=== PATIENT | male | born 1950 | race Caucasian/White ===

== ENCOUNTER 2021-06-04 17:15 | Outpatient (REF) | payer MEDICARE, SELFPAY ==
--- OUTSIDE RECORDS SUMMARY | 2021-06-04 17:19 | XMS_ITS ---
:1950 Author Care Team Providers Name Role Phone BECKI BUTLER MD Primary Care Provider [phone] Allergies None recorded. Medications None recorded. Problems Name Status Onset Date Source ? Hereditary Peripheral Neuropathy Active ? History Idiopathic Peripheral Neuropathy Active ? History Pain in Limb Active ? History Abnormal Gait Active ? History Abnormal Glucose Level Active ? History Procedures None recorded. Results Lab Results Date Name Specimen Result Interpretation Description Value Range Status Address ? 08/04/2016 Venipuncture BLD ? Venpn* ? ? Final [facility] L [facility] (Internal) : [address] 08/04/2016 Lipid Panel, S ? Chol 142 50-2 Final [facility] Serum mg/dL 00 Hospital L ab mg/d (Internal) : L [address] ? ? S ? Trig 121 10-1 Final [facility] try mg/dL 50 Hospital L ab mg/d (Internal) : L [address] ? ? S Low Hdl 33 40-6 Final [facility] try mg/dL 0 Hospital L ab mg/d (Internal) : L [address] ? ? S ? Ldl 85 0-13 Final [facility] try mg/dL 0 Hospital L ab mg/d (Internal) : L [address] Past Encounters 12/03/2020 Neck Pain; Cervical Radiculopathy; Antal gic Posture Amanda Lopez, PT: [address] [place] [address], [address], [place] [address], Ph. 11/01/2020 Neck Pain; Cervical Radiculopathy; Antal gic Posture Amanda Lopez, PT: [address] [place] [address], [address], [place] [address], Ph. 10/23/2020 Neck Pain; Cervical Radiculopathy; Antal gic Posture Amanda Lopez, PT: [address] [place] [address], [address], [place] [address], Ph. 10/18/2020 Neck Pain; Cervical Radiculopathy; Antal gic Posture Amanda Lopez, PT: [address] [facility] [address], [address], [place] [address], Ph. 10/01/2020 Neck Pain; Cervical Radiculopathy; Antal gic Posture Amanda Lopez, PT: [address] [facility] [address], [address], [place] [address], Ph. Social History None recorded. Vaccine List Vaccine Type COVID-19, mRNA, LNP-S, PF, 100 mcg/0.5 m L dose (Moderna) 04/17/2020?0.5 mL 05/14/2020?100 mcg Plan of Care Reminders Provider Appointments None ? ? recorded. Lab None ? ? recorded. Referral None ? ? recorded. Procedures None ? ? recorded. Surgeries None ? ? recorded. Imaging None ? ? recorded. Vitals None recorded.
[2021-06-04 18:41] LABS: Abs Immature Grans 0.02 10^3/uL (0.0-0.06); Absolute Basophil Count 0.03 10^3/uL (0.0-0.2); Absolute Eosinophil Count 0.15 10^3/uL (0.0-0.7); Absolute Lymphocyte Count 2.85 10^3/uL (1.2-3.4); Absolute Monocyte Count 0.55 10^3/uL (0.1-0.8); Absolute Neutrophil Count 3.39 10^3/uL (1.2-6.7); Basophils % 0.4; Eosinophils % 2.1; HCT 45.4 % (40.0-50.0); HGB 15.3 g/dL (13.5-17.5); Immature Grans % 0.3; Lymphocytes % 40.8; MCH 31.3 pg (27.0-33.0); MCHC 33.7 % (32.0-36.0); MCV 92.8 fL (80-95); MPV 10.1 fL (8.0-11.0); Monocytes % 7.9; Neutrophils % 48.5; Nucleated RBC 0 %; Platelet Count 240 10^3/uL (130-400); RBC 4.89 10^6/uL (4.36-5.78); RDW 12.1 % (11.8-14.1); RDW-SD 41.6 fL; WBC 6.99 10^3/uL (4.4-10.8)
[2021-06-04 19:05] LABS: ALT 35 U/L (16-63); AST 19 U/L (15-37); Alkaline Phosphatase 92 U/L (46-116); Anion Gap 7.6 mmol/L (3-11); BUN 19 mg/dL (7-18); Bilirubin, Total 0.4 mg/dL (0.2-1.0); CO2 28.4 mmol/L (21.0-32.0); CREATININE 1.1 mg/dL (0.70-1.30); Calcium 8.9 mg/dL (8.5-10.1); Calculated LDL 168 mg/dL (<100); Chloride 104 mmol/L (98-107); Cholesterol 247 mg/dL (<200); Glucose 98 mg/dL (74-106); HDL Cholesterol 39 mg/dL (40-60); Potassium 4.7 mmol/L (3.5-5.1); Sodium 140 mmol/L (136-145); Total Protein 7.3 g/dL (6.4-8.2); Triglyceride 202 mg/dL (<150)
[2021-06-12 15:26] LABS: Testosterone, Free 0.37 ng/dL (3.28-12.2); Testosterone, Total 17 ng/dL (240-950)
== END 2021-06-04 17:16 | disposition home or self-care (01) ==
LOC: NCHCN 17:15
PROVIDERS: Visit Provider Nurse Practitioner Family
DX: I10 Essential (primary) hypertension (principal)
CPT/HCPCS: 80053; 80061; 84402; 84403; 85025

== ENCOUNTER 2021-06-18 16:33 | Outpatient (REF) | payer MEDICARE, SELFPAY ==
[2021-06-24 09:33] LABS: Testosterone, Free 0.52 ng/dL (3.28-12.2); Testosterone, Total 20 ng/dL (240-950)
== END 2021-06-18 16:34 | disposition home or self-care (01) ==
LOC: NCHCN 16:33
PROVIDERS: Visit Provider Nurse Practitioner Family
DX: E29.8 Other testicular dysfunction (principal)
CPT/HCPCS: 84402; 84403

== ENCOUNTER 2021-06-28 18:44 | Outpatient (REF) | payer MEDICARE, SELFPAY ==
[2021-07-01 11:16] LABS: PSA, Screening 0.1 ng/mL (<=6.5)
== END 2021-06-28 18:45 | disposition home or self-care (01) ==
LOC: NCHCN 18:44
PROVIDERS: Visit Provider Nurse Practitioner Family
DX: Z12.5 Encounter for screening for malignant neoplasm of prostate (principal)
CPT/HCPCS: 84153

== ENCOUNTER 2023-03-10 14:19 | Outpatient (REF) | payer MEDICARE, SELFPAY ==
--- OUTSIDE RECORDS SUMMARY | 2023-03-10 14:23 | XMS_ITS | Continuity of Care Document ---
Author Name Unknown Organization 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 Name Role Phone Babak Gonzalez Primary Care Physician [facility] Date[facility] 04/03/22 - 04/03/[address] [address] Discharge Disposition: Home or Self Care Attending Physician: Regino Bolaños MD Admitting Physician: Regino Bolaños MD Referring Physician: Regino Bolaños MD Allergies, Adverse Reactions, Alerts No Known Medication Allergies Assessment and Plan Future Appointments Future Scheduled Tests Laboratory* Testosterone [facility] 01/27/22 * PSA Diagnostic 01/27/22 Immunizations Given and Recorded Vaccine Date Status Refusal Reason SARS-CoV-2 (COVID-19) mRNA-1273 vaccine 05/14/20 R ecorded SARS-CoV-2 (COVID-19) mRNA-1273 vaccine 04/17/20 R ecorded Medications dicyclomine 20 mg oral tablet mg = tab, Oral, 0 Refill(s) Start Date: 07/27/21 Status: Ordered metoprolol succinate 50 mg oral capsule, extended release mg = cap, Oral, Daily, 0 Refill(s) Start Date: 07/27/21 Status: Ordered omeprazole 20 mg oral delayed release capsule mg = cap, Oral, Daily, 0 Refill(s) Start Date: 07/27/21 Status: Ordered simvastatin 20 mg oral tablet mg = tab, Oral, every night at bedtime, 0 Refill(s) Start Date: 07/27/21 Status: Ordered Problem List Condition Confirmation Course Effective Dates Status H ealth Status Informant Abnormal gait Confirmed Active Abnormal glucose level Confirmed Active Cholelithiasis Confirmed Active Hereditary peripheral neuropathy Confirmed Active Idiopathic peripheral neuropathy Confirmed Active Pain in limb Confirmed Active Social History Social History Type Response Tobacco Tobacco use status u nknown Tobacco Use:. Sex Male Patient Care team information Personnel Name: Babak Gonzalez MD Address: Address: [address]
--- OUTSIDE RECORDS SUMMARY | 2023-03-10 14:23 | XMS_ITS | Continuity of Care Document ---
Author Name Unknown Organization 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 Name Role Phone Babak Gonzalez Primary Care Physician Encounter [facility] Date(s): 03/21/22 - 05/17/[address] [address] Discharge Disposition: Home or Self Care Attending Physician: Monty Ritchie MD Admitting Physician: Monty Ritchie MD Referring Physician: Babak Gonzalez MD Allergies, Adverse Reactions, Alerts Substance Reaction Severity Status NSAIDs Unknown Active Assessment and Plan Future Scheduled Tests Laboratory* Testosterone [facility] 01/27/22 * PSA Diagnostic 01/27/22 Functional Status 04/09/22 Other exposure to Infectious Disease Non e Immunizations Given and Recorded Vaccine Date Status [...] Confirmed Active Hereditary peripheral neuropathy Confirmed Active Hyperlipidemia Confirmed Active Hypertension Confirmed Active Idiopathic peripheral neuropathy Confirmed Active Pain in limb Confirmed Active Procedures Procedure Date Related Diagnosis Body Site Status Appendectomy Completed Colonoscopy Completed Knee Surgery Completed Social History Social History Type Response Tobacco Tobacco use status u nknown Tobacco Use:. Sex Male History and physical note * Aneta Oconnor: PERFORM Event Display: History and Physical Authored Date: [id number] STAN ELIZABETH :1950 Age:71 years Sex:Male Primary Care Physician: Babak Gonzalez MD Patient was seen in the office on 03/21/2022 Electronically Signed on 03/24/22 07:22 AM Aneta Oconnor Patient Care team information Care Team Personnel Name: Babak Gonzalez MD Position: No Access Member Role: Primary Care Physician Address: Address: [place] [address]- Care Team Related Persons Name: ARIELA WHITE
[2023-03-10 20:10] LABS: Anion Gap 9.4 mmol/L (3-11); BUN 15 mg/dL (7-18); CO2 23.6 mmol/L (21.0-32.0); CREATININE 1.1 mg/dL (0.70-1.30); Calcium 9.4 mg/dL (8.5-10.1); Calculated LDL 105 mg/dL (<100); Chloride 103 mmol/L (98-107); Cholesterol 197 mg/dL (<200); Estimated GFR 70.88 (mL/min/1.73m2); Glucose 120 mg/dL (74-106); HDL Cholesterol 39 mg/dL (40-60); Potassium 4.1 mmol/L (3.5-5.1); Sodium 136 mmol/L (136-145); Triglyceride 267 mg/dL (<150)
== END 2023-03-10 14:20 | disposition home or self-care (01) ==
LOC: NCHCN 14:19
PROVIDERS: Visit Provider Nurse Practitioner Family
DX: I10 Essential (primary) hypertension (principal); E78.5 Hyperlipidemia, unspecified
CPT/HCPCS: 80048; 80061

== ENCOUNTER 2023-08-25 14:52 | Outpatient (REF) | payer MEDICARE, SELFPAY ==
--- OUTSIDE RECORDS SUMMARY | 2023-08-25 14:55 | XMS_ITS | Continuity of Care Document ---
Author Name Unknown Organization [facility] Address [address] [place] [address] Care Team Providers Care Government Contracts Manager Name Role Phone Shawna Lentz Primary Care Physician Encounter [facility] [id number] Date(s): 08/05/23 - 08/05/[address] [address] Encounter Diagnosis Pneumonia(Discharge Diagnosis) - 08/05/23 Hypokalemia(Discharge Diagnosis) - 08/05/23 Weakness(Discharge Diagnosis) - 08/05/23 Discharge Disposition: Home or Self Care Attending Physician: Rip Andrew MD Admitting Physician: Rip Andrew MD Allergies, Adverse Reactions, Alerts Substance Reaction Severity Status NSAIDs Unknown Active Assessment and Plan Extracted from: Title:ED Provider Note Author:Adele Godwin MD Date:08/05/23 Assessment/Plan 1.??Pneumonia??J18.9 ??Will place patient on doxycycline 100 mg twice a day a prepack is sent home with patient so he can get started tonight.?? If patient worsens he is to return to the emergency department. ??Patient's??try to increase fluids??and food??and if he worsens return to the emergency department. ??Patient to follow-up with his primary care provider. Ordered: doxycycline hyclate 100 mg oral capsule, 100 mg = 1 cap, Oral, BID, # 14 cap, 0 Refill(s), Pharmacy: [facility], 179, cm, 03/21/22 11:13:00 EST, Height, 88.2, kg, 08/05/23 16:58:00 EDT, Weight Dosing potassium chloride 20 mEq oral tablet, extended release, 20 mEq = 1 tab, Oral, BID, X 3 days, # 6 tab, 0 Refill(s), 08/08/23 19:22:00 EDT, Pharmacy: [facility], 179, cm, 03/21/22 11:13:00 EST, Height, 88.2, kg, 08/05/23 16:58:00 EDT, Weight Dosing Discharge Patient, 08/05/23 19:20:00 EDT, Home Independently, Constant Indicator ?? 2.??Hypokalemia??E87.6 ??Patient is given 40 mill equivalents of potassium here this evening and 40 mg once to go home to take??in the morning. ??A prescription for??potassium 20 mill equivalents??twice a day for 3 days as??sent to the pharmacy for patient to take. Ordered: doxycycline hyclate 100 mg oral capsule, 100 mg = 1 cap, Oral, BID, # 14 cap, 0 Refill(s), Pharmacy: [facility], 179, cm, 03/21/22 11:13:00 EST, Height, 88.2, kg, 08/05/23 16:58:00 EDT, Weight Dosing potassium chloride 20 mEq oral tablet, extended release, 20 mEq = 1 tab, Oral, BID, X 3 days, # 6 tab, 0 Refill(s), 08/08/23 19:22:00 EDT, Pharmacy: [facility], 179, cm, 03/21/22 11:13:00 EST, Height, 88.2, kg, 08/05/23 16:58:00 EDT, Weight Dosing Discharge Patient, 08/05/23 19:20:00 EDT, Home Independently, Constant Indicator ?? 3.??Weakness??R53.1 ??Patient reported??lots of balance issues and muscle weakness with moving had patient see??teleneurology patient neuroexam here??was reassuring and teleneurology also felt reassuring. ??Prior to discharge patient was able to??walk around??without apparent difficulty??patient does have an elevated CK and a CRP expect patient will??need to continue to drink fluids??and be active. Ordered: doxycycline hyclate 100 mg oral capsule, 100 mg = 1 cap, Oral, BID, # 14 cap, 0 Refill(s), Pharmacy: [facility], 179, cm, 03/21/22 11:13:00 EST, Height, 88.2, kg, 08/05/23 16:58:00 EDT, Weight Dosing potassium chloride 20 mEq oral tablet, extended release, 20 mEq = 1 tab, Oral, BID, X 3 days, # 6 tab, 0 Refill(s), 08/08/23 19:22:00 EDT, Pharmacy: [facility], 179, cm, 03/21/22 11:13:00 EST, Height, 88.2, kg, 08/05/23 16:58:00 EDT, Weight Dosing Discharge Patient, 08/05/23 19:20:00 EDT, Home Independently, Constant Indicator ?? Orders: THP doxycycline monohydrate 100 mg Cap, 2 cap, Oral, Misc, Once, First Dose: 08/05/23 19:18:00 EDT, Stop Date: 08/05/23 19:18:00 EDT, Physician Stop, STAT potassium chloride, 40 mEq = 2 tab, Oral, Tab-ER, Once, First Dose: 08/05/23 19:19:00 EDT, Stop Date: 08/05/23 19:19:00 EDT, Physician Stop, STAT Blood Culture, Blood, Stat collect, ST - Stat, 08/05/23 18:29:00 EDT, Once, Nurse collect, Print Label Blood Culture, Blood, Stat collect, ST - Stat, 08/05/23 18:29:00 EDT, Once, Nurse collect, Print Label Urine Culture, Urine, Stat collect, ST - Stat, 08/05/23 17:30:00 EDT, Once, Nurse collect, Collected, 08/05/23 17:30:00 EDT, Print Label, [id number] Patient Education Hypokalemia Potassium Content of Foods Community-Acquired Pneumonia, Adult Follow Up With When Contact Information Follow up with primary care provider Within 1 to 2 weeks Additional Instructions: Diagnostic Tests Pending * Blood Culture 08/05/23 * Blood Culture 08/05/23 Functional Status 08/05/23 Dinner Percent 50 Immunizations Given and Recorded Vaccine Date Status Refusal Reason tetanus/diphth/pertuss (Tdap) adult/adol 02/25/22 Recorded SARS-CoV-2 (COVID-19) mRNA-1273 vaccine 01/01/22 R ecorded SARS-CoV-2 (COVID-19) mRNA-1273 vaccine 05/30/21 R ecorded SARS-CoV-2 (COVID-19) mRNA-1273 vaccine 12/24/20 R ecorded SARS-CoV-2 (COVID-19) mRNA-1273 vaccine 05/14/20 R ecorded SARS-CoV-2 (COVID-19) mRNA-1273 vaccine 04/17/20 R ecorded influenza virus vaccine, inactivated 12/30/21 Bobby rded pneumococcal 13-valent conjugate vaccine 01/04/16 Recorded tetanus-diphth toxoids (Td) adult/adol 01/31/13 Re corded Medications dicyclomine 20 mg oral tablet mg = tab, Oral, 0 Refill(s) Start Date: 07/27/21 Status: Ordered doxycycline hyclate 100 mg oral capsule 100 mg = 1 cap, Oral, BID, # 14 cap, 0 Refill(s), Pharmacy: [facility], 179, cm, 03/21/2310:13:00 EST, Height, 88.2, kg, 08/05/23 16:58:00 EDT, Weight Dosing Start Date: 08/05/23 Stop Date: 08/12/23 Status: Ordered metoprolol succinate 50 mg oral capsule, extended release mg = cap, Oral, Daily, 0 Refill(s) Start Date: 07/27/21 Status: Ordered omeprazole 20 mg oral delayed release capsule mg = cap, Oral, Daily, 0 Refill(s) Start Date: 07/27/21 Status: Ordered potassium chloride 20 mEq oral tablet, extended release 20 mEq = 1 tab, Oral, BID, X 3 days, # 6 tab, 0 Refill(s), 08/08/23 6:22:00 PM CDT, Pharmacy: [facility], 179, cm, 03/21/22 11:13:00 EST, Height, 88.2, kg, 08/05/23 16:58:00 EDT, Weight Dosing Start Date: 08/05/23 Stop Date: 08/08/23 Status: Ordered simvastatin 20 mg oral tablet [...] Appendectomy Completed Colonoscopy Completed Knee Surgery Completed Results Laboratory List Name Date Respiratory Panel 2.1 ([facility]) 08/05/23 Urinalysis Microscopic 08/05/23 Urinalysis with Micro if Indicated and C ulture if Indicated 08/05/23 .Manual Differential ([facility]) 08/05/23 C-Reactive Protein 08/05/23 CBC w/ Diff 08/05/23 Comprehensive Metabolic Panel 08/05/23 Creatine Kinase 08/05/23 Lactic Acid 08/05/23 Thyroid Stimulating Hormone (TSH) 4 Most recent to oldest [Reference Range]: 1 WBC [5.0-10.0 x10^3/mcL] 7.1 x10^3/mcL (08/05/23 5:02 PM) RBC [4.6-6.0 x10^6/mcL] 4.2 x10^6/mcL *LOW* (08/05/23 5:02 PM) Segs Man [40-75 %] 83 % *HI* (08/05/23 5:02 PM) Lymph Man [20-50 %] 9 % *LOW* (08/05/23 5:02 PM) Hendry Man [2-15 %] 5 % (08/05/23 5:02 PM) Eos Man [1-6 %] 0 % *LOW* (08/05/23 5:02 PM) BUN [7-18 mg/dL] 17 mg/dL (08/05/23 5:02 PM) UA Color Yellow (08/05/23 5:30 PM) UA WBC [0-3] 10-25 *ABN* (08/05/23 5:30 PM) Glucose Level [74-106 mg/dL] 120 mg/dL 1 *HI* (08/05/23 5:02 PM) Lymph, Atyp Man 3 % *NA* (08/05/23 5:02 PM) Potassium Level [3.5-5.1 mmol/L] 2.8 mmo l/L *LOW* (08/05/23 5:02 PM) MCV [80.0-96.0 fL] 86.7 fL (08/05/23 5:02 PM) UA Urobilinogen Positive *ABN* (08/05/23 5:30 PM) RBC Morph Abnormal (08/05/23 5:02 PM) UA Hyal Cast Rare /HPF (08/05/23 5:30 PM) UA Bili [Negative] 1+ *ABN* (08/05/23 5:30 PM) CRP [<=10.0 mg/L] 245.6 mg/L *HI* (08/05/23 5:02 PM) UA Ketones Negative (08/05/23 5:30 PM) AST [15-37 unit/L] 144 unit/L *HI* (08/05/23 5:02 PM) ALT [16-63 unit/L] 115 unit/L *HI* (08/05/23 5:02 PM) MCHC [31.0-35.0 g/dL] 36.2 g/dL *HI* (08/05/23 5:02 PM) Sodium Level [136-145 mmol/L] 132 mmol/L *LOW* (08/05/23 5:02 PM) UA RBC [0-2] 3-5 (08/05/23 5:30 PM) UA Leuk Est Negative (08/05/23 5:30 PM) UA Gran Cast Moderate /HPF (08/05/23 5:30 PM) UA Nitrite Negative (08/05/23 5:30 PM) UA Glucose [Negative] Negative (08/05/23 5:30 PM) Hct [41.0-51.0 %] 36.5 % *LOW* (08/05/23 5:02 PM) Microcyte Small (08/05/23 5:02 PM) UA Bacteria Few /HPF *ABN* (08/05/23 5:30 PM) Hypochromia Rare (08/05/23 5:02 PM) Calcium Level [8.5-10.1 mg/dL] 9.0 mg/dL (08/05/23 5:02 PM) Albumin Level [3.4-5.0 g/dL] 2.8 g/dL *LOW* (08/05/23 5:02 PM) Protein Total [6.4-8.2 g/dL] 7.2 g/dL (08/05/23 5:02 PM) UA Protein 2+ *ABN* (08/05/23 5:30 PM) MCH [26.0-32.0 pg] 31.4 pg (08/05/23 5:02 PM) Bilirubin Total [0.2-1.0 mg/dL] 0.8 mg/d L (08/05/23 5:02 PM) Hgb [14.0-18.0 g/dL] 13.2 g/dL *LOW* (08/05/23 5:02 PM) Alk Phos [46-146 unit/L] 95 unit/L (08/05/23 5:02 PM) UA Blood 3+ *ABN* (08/05/23 5:30 PM) Toxic Gran Rare (08/05/23 5:02 PM) UA Mucous Rare /HPF *ABN* (08/05/23 5:30 PM) Band Man [0-5 %] 0 % (08/05/23 5:02 PM) UA Spec Grav 1.020 *NA* (08/05/23 5:30 PM) Dohle Bodies Rare (08/05/23 5:02 PM) Platelets [130-450 x10^3/mcL] 196 x10^3/ mcL (08/05/23 5:02 PM) CO2 [21-32 mmol/L] 26 mmol/L (08/05/23 5:02 PM) Hyperseg Rare (08/05/23 5:02 PM) Lactic Acid Lvl [0.7-2.0 mmol/L] 1.3 mmo l/L (08/05/23 5:02 PM) UA Squam Epithelial [None Seen] Rare (08/05/23 5:30 PM) TSH [0.358-3.740 mcIntlUnit/mL] 0.761 mc IntlUnit/mL (08/05/23 5:02 PM) Macrocyte Rare (08/05/23 5:02 PM) UA pH 6.0 *NA* (08/05/23 5:30 PM) eGFR Non-AA [>=60] 66 (08/05/23 5:02 PM) eGFR AA [>=60] 66 (08/05/23 5:02 PM) UA Appear Clear (08/05/23 5:30 PM) Chloride Level [98-107 mmol/L] 93 mmol/L *LOW* (08/05/23 5:02 PM) RDW-CV [11.5-14.5 %] 12.9 % (08/05/23 5:02 PM) Adenovirus RespP-BFire [Not Detected] No t Detected (08/05/23 5:30 PM) Bordetella parapertussis RespP-BFire [No t Detected] Not Detected (08/05/23 5:30 PM) Bordetella pertussis RespP-BFire [Not De tected] Not Detected (08/05/23 5:30 PM) Chlamydophila pneumoniae RespP-BFire [No t Detected] Not Detected (08/05/23 5:30 PM) Coronavirus 229E (Not COVID-19) RP-BFire [Not Detected] Not Detected (08/05/23 5:30 PM) Coronavirus HKU1 (Not COVID-19) RP-BFire [Not Detected] Not Detected (08/05/23 5:30 PM) Coronavirus NL63 (Not COVID-19) RP-BFire [Not Detected] Not Detected (08/05/23 5:30 PM) Coronavirus OC43 (Not COVID-19) RP-BFire [Not Detected] Not Detected (08/05/23 5:30 PM) Human Metapneumonovirus RespP-BFire [Not Detected] Not Detected (08/05/23 5:30 PM) Human Rhinovirus/Enterovirus RespP-BFir [Not Detected] Not Detected (08/05/23 5:30 PM) Influenza A RespP-BFire [Not Detected] N ot Detected (08/05/23 5:30 PM) Influenza B RespP-BFire [Not Detected] N ot Detected (08/05/23 5:30 PM) Mycomplasma pneumoniae RespP-BFire [Not Detected] Not Detected (08/05/23 5:30 PM) Parainfluenza Virus 1 RespP-BFire [Not D etected] Not Detected (08/05/23 5:30 PM) Parainfluenza Virus 2 RespP-BFire [Not D etected] Not Detected (08/05/23 5:30 PM) Parainfluenza Virus 3 RespP-BFire [Not D etected] Not Detected (08/05/23 5:30 PM) Parainfluenza Virus 4 RespP-BFire [Not D etected] Not Detected (08/05/23 5:30 PM) Respiratory Syncytial Virus RespP-BFire [Not Detected] Not Detected (08/05/23 5:30 PM) Plt Giant Rare (08/05/23 5:02 PM) Slide Review Man Diff (08/05/23 5:02 PM) UA Culture Ind?. Indicated (08/05/23 5:30 PM) Abs Neut Man 5.9 x10^3/mcL *NA* (08/05/23 5:02 PM) UA Trans Epi Few (08/05/23 5:30 PM) Anisocyte Rare (08/05/23 5:02 PM) Creatinine Level [0.70-1.30 mg/dL] 1.17 mg/dL (08/05/23 5:02 PM) SARS-CoV-2 (COVID-19) RP-BFire [Not Dete cted] Not Detected (08/05/23 5:30 PM) Baso Man [0-1 %] 0 % (08/05/23 5:02 PM) CK [39-308 unit/L] 456 unit/L *HI* (08/05/23 5:02 PM) 1Result Comment: Result verified by repeat analysis Orders for Microbiology Reports Name Date Urine Culture 08/05/23 Microbiology Reports TEST:Urine Culture STATUS:Order in Progress BODY SITE: SOURCE:Urine COLLECTED DATE/TIME:08/05/23 5:30 PM PRELIMINARY REPORT No growth at 24 hours. Vital Signs Most recent to oldest [Reference Range]: 1 2 3 Temperature Temporal Artery [36-38 Deg C] 37.1 Deg C (08/05/23 6:00 PM) 37.1 Deg C (08/05/23 4:54 PM) Peripheral Pulse Rate [60-100 bpm] 94 bpm (08/05/23 6:15 PM) 95 bpm (08/05/23 6:00 PM) 98 bpm (08/05/23 5:45 PM) Heart Rate Monitored [60-100 bpm] 95 bpm (08/05/23 7:14 PM) 98 bpm (08/05/23 6:15 PM) 94 bpm (08/05/23 6:00 PM) Respiratory Rate [12-24 br/min] 18 br/min (08/05/23 7:38 PM) 25 br/min *HI* (08/05/23 7:14 PM) 21 br/min (08/05/23 6:15 PM) Blood Pressure [90-140/60-90 mmHg] 106/63mmHg (08/05/23 7:14 PM) 123/61mmHg (08/05/23 6:15 PM) 131/68mmHg (08/05/23 6:00 PM) Mean Arterial Pressure, Cuff [65-140 mmHg] 77 mmHg (08/05/23 7:14 PM) 82 mmHg (08/05/23 6:15 PM) 89 mmHg (08/05/23 6:00 PM) Weight 88.2 kg (08/05/23 4:54 PM) Weight Dosing 88.200 kg (08/05/23 4:54 PM) Body Mass Index Estimated 27.53 kg/m2 (08/05/23 4:54 PM) Height/Length Estimated 179 cm (08/05/23 4:54 PM) Social History Social History Type Response Tobacco Current everyday tob acco user Tobacco Use:. 1 ppd per day. Sex Male Hospital Discharge Instructions Patient Education 08/05/2023 18:25:35 Hypokalemia Hypokalemia Hypokalemia means that the amount of potassium in the blood is lower than normal. Potassium is a mineral (electrolyte) that helps regulate the amount of fluid in the body. It also stimulates muscle tightening (contraction) and helps nerves work properly. Normally, most of the body's potassium is inside cells, and only a very small amount is in the blood. Because the amount in the blood is so small, minor changes to potassium levels in the blood can be life-threatening. What are the causes? This condition may be caused by: ??? Antibiotic medicine. ??? Diarrhea or vomiting. Taking too much of a medicine that helps you have a bowel movement (laxative) can cause diarrhea and lead to hypokalemia. ??? Chronic kidney disease (CKD). ??? Medicines that help the body get rid of excess fluid (diuretics). ??? Eating disorders, such as anorexia or bulimia. ??? Low magnesium levels in the body. ??? Sweating a lot. What are the signs or symptoms? Symptoms of this condition include: ??? Weakness. ??? Constipation. ??? Fatigue. ??? Muscle cramps. ??? Mental confusion. ??? Skipped heartbeats or irregular heartbeat (palpitations). ??? Tingling or numbness. How is this diagnosed? This condition is diagnosed with a blood test. How is this treated? This condition may be treated by: ??? Taking potassium supplements. ??? Adjusting the medicines that you take. ??? Eating more foods that contain a lot of potassium. If your potassium level is very low, you may need to get potassium through an IV and be monitored in the hospital. Follow these instructions at home: Eating and drinking ??? Eat a healthy diet. A healthy diet includes fresh fruits and vegetables, whole grains, healthy fats, and lean proteins. ??? If told, eat more foods that contain a lot of potassium. These include: ??? Nuts, such as peanuts and pistachios. ??? Seeds, such as sunflower seeds and pumpkin seeds. ??? Peas, lentils, and petersen beans. ??? Whole grain and bran cereals and breads. ??? Fresh fruits and vegetables, such as apricots, avocado, bananas, cantaloupe, kiwi, oranges, tomatoes, asparagus, and potatoes. ??? Juices, such as orange, tomato, and prune. ??? Lean meats, including fish. ??? Milk and milk products, such as yogurt. General instructions ??? Take ajbv-rbr-uunldum and prescription medicines only as told by your health care provider. This includes vitamins, natural food products, and supplements. ??? Keep all follow-up visits. This is important. Contact a health care provider if: ??? You have weakness that gets worse. ??? You feel your heart pounding or racing. ??? You vomit. ??? You have diarrhea. ??? You have diabetes and you have trouble keeping your blood sugar in your target range. Get help right away if: ??? You have chest pain. ??? You have shortness of breath. ??? You have vomiting or diarrhea that lasts for more than 2 days. ??? You faint. These symptoms may be an emergency. Get help right away. Call 911. ??? Do not wait to see if the symptoms will go away. ??? Do not drive yourself to the hospital. Summary ??? Hypokalemia means that the amount of potassium in the blood is lower than normal. ??? This condition is diagnosed with a blood test. ??? Hypokalemia may be treated by taking potassium supplements, adjusting the medicines that you take, or eating more foods that are high in potassium. ??? If your potassium level is very low, you may need to get potassium through an IV and be monitored in the hospital. This information is not intended to replace advice given to you by your health care provider. Make sure you discuss any questions you have with your health care provider. Document Revised: 10/24/2021 Document Reviewed: 10/24/2021 [employer] Patient Education ?? 2022 [employer]. 08/05/2023 18:25:34 Potassium Content of Foods Potassium Content of Foods Potassium is a mineral found in many foods and drinks. It can affect how the heart works, affect blood pressure, and keep fluids and electrolytes balanced in the body. It is important not to have toomuch potassium (hyperkalemia) or too little potassium (hypokalemia) in the body, especially in the blood. Potassium is naturally found in many different types of whole foods, such as fruits, vegetables, meat, and dairy products. Processed foods tend to be lower in potassium. The amount of potassium you need each day depends on your age and any medical conditions you may have. General recommendations are: ??? Females aged 19 and older: 2,600 mg per day. ??? Males aged 19 and older: 3,400 mg per day. Talk with your health care provider or dietitian about how much potassium you need. What foods are high in potassium? Below are examples of foods that have greater than 200 mg of potassium per serving. Fruits ??? [place] ??? 1 medium (130 g) has 230 mg of potassium. ??? Banana ??? 1 medium (120 g) has 420 mg of potassium. ??? Cantaloupe, chunks ??? 1 cup (160 g) has 430 mg of potassium. Vegetables ??? Potato, baked, without skin ??? 1 medium (170 g) has 600 mg of potassium. ??? Broccoli, chopped, cooked ? cup (77.5 g) has 230 mg of potassium. ??? Tomato, chopped or sliced ??? 1 cup (152 g) has 400 mg of potassium. Grains ??? Cereal, bran with raisins ??? 1 cup (59 g) has 360 mg of potassium. ??? Granola with almonds ? cup (82 g) has 220 mg of potassium. Meats and other proteins ??? Ground beef aramis ??? 4 ounces (113 g) has 240 mg of potassium. ??? Kidney beans, boiled ? cup (130 g) has 350 mg of potassium. ??? Almonds ??? 1 ounce (approximately 22 nuts or 28 g) has 200 mg of potassium. Dairy ??? Cow's milk, 1% ??? 1 cup (237 mL) has 360 mg of potassium. ??? Plain vanilla low-fat yogurt ? cup (184 g) has 220 mg of potassium. The items listed above may not be a complete list of foods high in potassium. Actual amounts of potassium may be different depending on ripeness, shelf life, and food preparation. Contact a dietitianfor more information. What foods are low in potassium? Below are examples of foods that have less than 200 mg of potassium per serving. Fruits ??? Blueberries ??? 1 cup (145 g) has 110 mg of potassium. ??? Apple ??? 1 medium (140 g) has 145 mg of potassium. ??? Grapes ??? 1 cup (160 g) has 175 mg of potassium. Vegetables ??? Cabbage, raw ??? 1 cup (70 g) has 120 mg of potassium. ??? Cauliflower, chopped, cooked ??? 1 cup (180 g) has 90 mg of potassium. ??? Antonio lettuce, chopped ??? 1 cup (56 g) has 120 mg of potassium. Grains ??? Bagel, plain ??? one 4-inch (10 cm) has 100 mg of potassium. ??? Whole wheat bread ??? 1 slice (26 g) has 70 mg of potassium. ??? White rice, cooked ??? 1 cup (163 g) has 50 mg of potassium. Meats and other proteins ??? Tuna, light, canned in water ??? 3 ounces (85 g) has 150 mg of potassium. ??? Egg, fried ??? 1 large (50 g) has 60 mg of potassium. ??? Peanuts ???1 ounce (35 nuts or 28 g) has 180 mg of potassium. ??? Tofu ? cup (252 g) has 150 mg of potassium. Dairy ??? Cheese (cheddar, juanito, mozzarella, or provolone) ??? 1 ounce (28 g) has 30 to 40 mg of potassium. The items listed above may not be a complete list of foods that are low in potassium. Actual amounts of potassium may be different depending on ripeness, shelf life, and food preparation. Contact a dietitian for more information. Summary ??? Potassium is a mineral found in many foods and drinks. It affects how the heart works, affects blood pressure, and keeps fluids and electrolytes balanced in the body. ??? The amount of potassium you need each day depends on your age and any existing medical conditions you may have. ??? Your health care provider or dietitian may recommend an amount of potassium that you should have each day. This information is not intended to replace advice given to you by your health care provider. Make sure you discuss any questions you have with your health care provider. Document Revised: 11/12/2021 Document Reviewed: 10/24/2021 [employer] Patient Education ?? 2022 [employer] 08/05/2023 18:25:32 Community-Acquired Pneumonia, Adult Community-Acquired Pneumonia, Adult Pneumonia is a lung infection that causes inflammation and the buildup of mucus and fluids in the lungs. This may cause coughing and difficulty breathing. Community-acquired pneumonia is pneumonia that develops in people who are not, and have not recently been, in a hospital or other health care facility. Usually, pneumonia develops as a result of an illness that is caused by a virus, such as the commoncold and the flu (influenza). It can also be caused by bacteria or fungi. While the common cold andinfluenza can pass from person to person (are contagious), pneumonia itself is not considered contagious. What are the causes? This condition may be caused by: ??? Viruses. ??? Bacteria. ??? Fungi. What increases the risk? The following factors may make you more likely to develop this condition: ??? Being over age 65 or having certain medical conditions, such as: ??? A long-term (chronic) disease, such as: chronic obstructive pulmonary disease (COPD), asthma, heart failure, diabetes, or kidney disease. ??? A condition that increases the risk of breathing in (aspirating) mucus and other fluids from your mouth and nose. ??? A weakened body defense system (immune system). ??? Having had your spleen removed (splenectomy). The spleen is the organ that helps fight germs and infections. ??? Not cleaning your teeth and gums well (poor dental hygiene). ??? Using tobacco products. ??? Traveling to places where germs that cause pneumonia are present or being near certain animals or animal habitats that could have germs that cause pneumonia. What are the signs or symptoms? Symptoms of this condition include: ??? A dry cough or a wet (productive) cough. ??? A fever, sweating, or chills. ??? Chest pain, especially when breathing deeply or coughing. ??? Fast breathing, difficulty breathing, or shortness of breath. ??? Tiredness (fatigue) and muscle aches. How is this diagnosed? This condition may be diagnosed based on your medical history or a physical exam. You may also havetests, including: ??? Imaging, such as a chest X-ray or lung ultrasound. ??? Tests of: ??? The level of oxygen and other gases in your blood. ??? Mucus from your lungs (sputum). ??? Fluid around your lungs (pleural fluid). ??? Your urine. How is this treated? Treatment for this condition depends on many factors, such as the cause of your pneumonia, your medicines, and other medical conditions that you have. For most adults, pneumonia may be treated at home. In some cases, treatment must happen in a hospital and may include: ??? Medicines that are given by mouth (orally) or through an IV, including: ??? Antibiotic medicines, if bacteria caused the pneumonia. ??? Medicines that kill viruses (antiviral medicines), if a virus caused the pneumonia. ??? Oxygen therapy. Severe pneumonia, although rare, may require the following treatments: ??? Mechanical ventilation.This procedure uses a machine to help you breathe if you cannot breathe well on your own or maintain a safe level of blood oxygen. ??? Thoracentesis. This procedure removes any buildup of pleural fluid to help with breathing. Follow these instructions at home: Medicines ??? Take iyes-vly-bfhnweo and prescription medicines only as told by your health care provider. ??? Take cough medicine only if you have trouble sleeping. Cough medicine can prevent your body from removing mucus from your lungs. ??? If you were prescribed antibiotics, take them as told by your health care provider. Do not stoptaking the antibiotic even if you start to feel better. Lifestyle ??? Do not drink alcohol. ??? Do not use any products that contain nicotine or tobacco. These products include cigarettes, chewing tobacco, and vaping devices, such as e-cigarettes. If you need help quitting, ask your health care provider. ??? Eat a healthy diet. This includes plenty of vegetables, fruits, whole grains, low-fat dairy products, and lean protein. General instructions ??? Rest a lot and get at least 8 hours of sleep each night. ??? Sleep in a partly upright position at night. Place a few pillows under your head or sleep in a reclining chair. ??? Return to your normal activities as told by your health care provider. Ask your health care provider what activities are safe for you. ??? Drink enough fluid to keep your urine pale yellow. This helps to thin the mucus in your lungs. ??? If your throat is sore, gargle with a mixture of salt and water 3???4 times a day or as needed.To make salt water, completely dissolve ?1 tsp (3???6 g) of salt in 1 cup (237 mL) of warm water. ??? Keep all follow-up visits. How is this prevented? You can lower your risk of developing community-acquired pneumonia by: ??? Getting the pneumonia vaccine. There are different types and schedules of pneumonia vaccines. Ask your health care provider which option is best for you. Consider getting the pneumonia vaccine if: ??? You are older than 65 years of age. ??? You are 19???65 years of age and are receiving cancer treatment, have chronic lung disease, or have other medical conditions that affect your immune system. Ask your health care provider if this applies to you. ??? Getting your influenza vaccine every year. Ask your health care provider which type of vaccine is best for you. ??? Getting regular dental checkups. ??? Washing your hands often with soap and water for at least 20 seconds. If soap and water are notavailable, use hand orthopedics teacher. Contact a health care provider if: ??? You have a fever. ??? You have trouble sleeping because you cannot control your cough with cough medicine. Get help right away if: ??? Your shortness of breath becomes worse. ??? Your chest pain increases. ??? Your sickness becomes worse, especially if you are an older adult or have a weak immune system. ??? You cough up blood. These symptoms may be an emergency. Get help right away. Call 911. ??? Do not wait to see if the symptoms will go away. ??? Do not drive yourself to the hospital. Summary ??? Pneumonia is an infection of the lungs. ??? Community-acquired pneumonia develops in people who have not been in the hospital. It can be caused by bacteria, viruses, or fungi. ??? This condition may be treated with antibiotics or antiviral medicines. ??? Severe pneumonia may require a hospital stay and treatment to help with breathing. This information is not intended to replace advice given to you by your health care provider. Make sure you discuss any questions you have with your health care provider. Document Revised: 04/09/2022 Document Reviewed: 04/09/2022 [employer] Patient Education ?? 2022 [employer]. Follow Up Care 08/05/2023 16:52:44 With:Follow up with primary care provider Address: When:1 to 2 weeks Physician Emergency department Note * Yas Godwin MD: PERFORM Event Display: ED Note Physician Authored Date: [id number] ELIZABETHSTAN :1950 Age:72 years Sex:Male Visit Date:08/05/2023 Primary Care Physician: Shawna Lentz NP Basic Information Time Seen: Yas Godwin MD / 08/05/2023 17:00 Chief Complaint pt was seen here in the ED last week, has been feeling unwell for about 12 days. went to f/u with PCP today and had fever, was weak and needed help to get the room. History Of Present Illness: Was seen here on July 29 he has had fevers on and off??since??July 25 and ??patient went to his primary care provider today and was found to have a fever. ??Patient reports he is weak??he has a plan to get up and says that he at times has balance issues.?? Patient denies any??headaches other than his chronic headaches??no visual changes no hearing changes??no neck pain??no pain with range of motion no ear pain no sore throat??no cough no shortness of breath??patient has??ongoing??tobacco use??nonausea no vomiting??patient does state that??when he eats a few bites??he is not able to eat more.?? No extremity edema no skin rashes. Review of Systems: see hpi for ros Physical Exam Vitals & Measurements T:??37.1?C ??(Temporal Artery)?? HR:??95??(Monitored)?? RR:??25?? BP:??106/63?? SpO2:??98%?? HT:??179??cm?? WT:??88.2??kg?? BMI:??27.53?? Pain Score:??2?? O2 Therapy:??Room air?? General: Alert and oriented, well nourished,?No??acute distress Eye: PER?Normal??conjunctiva,??No??scleral icterus HENT: Normocephalic,??nontraumatic??Normal hearing Neck: Supple, non-tender,?No??JVD,?No??lymphadenopathy Lungs: Clear to auscultation,?Non-labored?? respiration Heart:?Normal?? rate,?Regular??rhythm,?No??murmur,?No??gallop,?No??edema Chest: wall excursion wnl no abnormal movements no obvious deformities Abdomen: Soft, non-tender, non-distended,?Normal?? bowel sounds,?No??masses Musculoskeletal:?Normal?? range of motion and strength,?No??tenderness,?No??swelling Skin: Skin is warm, dry and pink,?No??rashes,?No??lesions Neurologic: Awake, alert and oriented X4 Psychiatric: Cooperative, appropriate mood and affect Mental status/cognitive: Awake alert, answers questions appropriately alert to self, time and month, able to recall current events Cranial nerves CN II-vision grossly intact, PERRL CN III, IV, -EOMI CN V-V1-3 dermatomes intact to light touch CN VII-no facial asymmetry CN IX, X-uvula midline CN XII-normal tongue movement, no atrophy, no fasciculations, no weakness Motor: Normal muscle bulk, normal tone, no pronator drift. Strength 5/5 throughout all muscle groups in all 4 extremities. Able to move all extremities without difficulty Sensory: Sensation grossly intact to light touch in all 4 extremities Gait: Able to stand without assistance, normal gait Cerebellar: No nystagmus, normal [id number] test (no dysmetria) Medical Decision Making: For MDM please see under assessment and plan Procedure No Qualifying Data Assessment/Plan 1.??Pneumonia??J18.9 ??Will place patient on doxycycline 100 mg twice a day a prepack is sent home with patient so he can get started tonight.?? If patient worsens he is to return to the emergency department. ??Patient's??try to increase fluids??and food??and if he worsens return to the emergency department. ??Patient to follow-up with his primary care provider. Ordered: doxycycline hyclate 100 mg oral capsule, 100 mg = 1 cap, Oral, BID, # 14 cap, 0 Refill(s), Pharmacy: [facility], 179, cm, 03/21/22 11:13:00 EST, Height, 88.2, kg, 08/05/23 16:58:00 EDT, Weight Dosing potassium chloride 20 mEq oral tablet, extended release, 20 mEq = 1 tab, Oral, BID, X 3 days, # 6 tab, 0 Refill(s), 08/08/23 19:22:00 EDT, Pharmacy: [facility], 179, cm, 03/21/22 11:13:00 EST, Height, 88.2, kg, 08/05/23 16:58:00 EDT, Weight Dosing Discharge Patient, 08/05/23 19:20:00 EDT, Home Independently, Constant Indicator ?? 2.??Hypokalemia??E87.6 ??Patient is given 40 mill equivalents of potassium here this evening and 40 mg once to go home to take??in the morning. ??A prescription for??potassium 20 mill equivalents??twice a day for 3 days as??sent to the pharmacy for patient to take. Ordered: doxycycline hyclate 100 mg oral capsule, 100 mg = 1 cap, Oral, BID, # 14 cap, 0 Refill(s), Pharmacy: [facility], 179, cm, 03/21/22 11:13:00 EST, Height, 88.2, kg, 08/05/23 16:58:00 EDT, Weight Dosing potassium chloride 20 mEq oral tablet, extended release, 20 mEq = 1 tab, Oral, BID, X 3 days, # 6 tab, 0 Refill(s), 08/08/23 19:22:00 EDT, Pharmacy: [facility], 179, cm, 03/21/22 11:13:00 EST, Height, 88.2, kg, 08/05/23 16:58:00 EDT, Weight Dosing Discharge Patient, 08/05/23 19:20:00 EDT, Home Independently, Constant Indicator ?? 3.??Weakness??R53.1 ??Patient reported??lots of balance issues and muscle weakness with moving had patient see??teleneurology patient neuroexam here??was reassuring and teleneurology also felt reassuring. ??Prior to discharge patient was able to??walk around??without apparent difficulty??patient does have an elevated CK and a CRP expect patient will??need to continue to drink fluids??and be active. Ordered: doxycycline hyclate 100 mg oral capsule, 100 mg = 1 cap, Oral, BID, # 14 cap, 0 Refill(s), Pharmacy: [facility], 179, cm, 03/21/22 11:13:00 EST, Height, 88.2, kg, 08/05/23 16:58:00 EDT, Weight Dosing potassium chloride 20 mEq oral tablet, extended release, 20 mEq = 1 tab, Oral, BID, X 3 days, # 6 tab, 0 Refill(s), 08/08/23 19:22:00 EDT, Pharmacy: [facility], 179, cm, 03/21/22 11:13:00 EST, Height, 88.2, kg, 08/05/23 16:58:00 EDT, Weight Dosing Discharge Patient, 08/05/23 19:20:00 EDT, Home Independently, Constant Indicator ?? Orders: THP doxycycline monohydrate 100 mg Cap, 2 cap, Oral, Misc, Once, First Dose: 08/05/23 19:18:00 EDT,Stop Date: 08/05/23 19:18:00 EDT, Physician Stop, STAT potassium chloride, 40 mEq = 2 tab, Oral, Tab-ER, Once, First Dose: 08/05/23 19:19:00 EDT, Stop Date: 08/05/23 19:19:00 EDT, Physician Stop, STAT Blood Culture, Blood, Stat collect, ST - Stat, 08/05/23 18:29:00 EDT, Once, Nurse collect, Print Label Blood Culture, Blood, Stat collect, ST - Stat, 08/05/23 18:29:00 EDT, Once, Nurse collect, Print Label Urine Culture, Urine, Stat collect, ST - Stat, 08/05/23 17:30:00 EDT, Once, Nurse collect, Collected, 08/05/23 17:30:00 EDT, Print Label, [id number] Patient Education Hypokalemia Potassium Content of Foods Community-Acquired Pneumonia, Adult Follow Up With When Contact Information Follow up with primary care provider Within 1 to 2 weeks Additional Instructions: Medication Reconciliation New Prescription doxycycline (doxycycline hyclate 100 mg oral capsule)1 Capsules Oral (given by mouth) 2 times a dayfor 7 Days. Refills: 0. ?? potassium chloride (potassium chloride 20 mEq oral tablet, extended release)1 tab Oral (given by mouth) 2 times a day for 3 Days. Refills: 0. ?? Unchanged dicyclomine (dicyclomine 20 mg oral tablet)Oral (given by mouth). ?? metoprolol (metoprolol succinate 50 mg oral capsule, extended release)Oral (given by mouth) every day. ?? omeprazole (omeprazole 20 mg oral delayed release capsule)Oral (given by mouth) every day. ?? simvastatin (simvastatin 20 mg oral tablet)Oral (given by mouth) every night at bedtime. Problem List/Past Medical History Ongoing Abnormal gait Abnormal glucose level Cholelithiasis Hereditary peripheral neuropathy Hyperlipidemia Hypertension Idiopathic peripheral neuropathy Pain in limb Tobacco user Historical No qualifying data Procedure/Surgical History ???Appendectomy???Colonoscopy???Knee Surgery Medication Administration Given 0.9% NaCl bolus, 1000 mL, Hydration Bolus potassium chloride, 40 mEq, Oral Allergies NSAIDs Social History Alcohol Never Electronic Cigarette/Vaping Electronic Cigarette Use: Unknown/not obtained. Substance Use Never Tobacco Current everyday tobacco user Tobacco Use:. 1 ppd per day. Lab Results CBC and Differential?? LATEST RESULTS?? HISTORICAL RESULTS?? WBC?? 08/05/23 17:02?? 7.1?? 07/30/23?? 9.2?? RBC?? 08/05/23 17:02?? 4.2 ??Low?? 07/30/23?? 4.6?? Hgb?? 08/05/23 17:02?? 13.2 ??Low?? 07/30/23?? 14.6?? Hct?? 08/05/23 17:02?? 36.5 ??Low?? 07/30/23?? 41.0?? MCV?? 08/05/23 17:02?? 86.7?? 07/30/23?? 89.1?? MCH?? 08/05/23 17:02?? 31.4?? 07/30/23?? 31.7?? MCHC?? 08/05/23 17:02?? 36.2 ??High?? 07/30/23?? 35.6 ??High?? RDW-CV?? 08/05/23 17:02?? 12.9?? 07/30/23?? 12.4?? Platelets?? 08/05/23 17:02?? 196?? 07/30/23?? 178?? Segs Man?? 08/05/23 17:02?? 83 ??High? Lymph Man?? 08/05/23 17:02?? 9 ??Low? Hendry Man?? 08/05/23 17:02?? 5? Eos Man?? 08/05/23 17:02?? 0 ??Low? Baso Man?? 08/05/23 17:02?? 0? Band Man?? 08/05/23 17:02?? 0? Lymph, Atyp Man?? 08/05/23 17:02?? 3? Abs Neut Man?? 08/05/23 17:02?? 5.9? RBC Morph?? 08/05/23 17:02?? Abnormal? Anisocyte?? 08/05/23 17:02?? Rare? Dohle Bodies?? 08/05/23 17:02?? Rare? Hyperseg?? 08/05/23 17:02?? Rare? Hypochromia?? 08/05/23 17:02?? Rare? Microcyte?? 08/05/23 17:02?? Small? Macrocyte?? 08/05/23 17:02?? Rare? Plt Giant?? 08/05/23 17:02?? Rare? Toxic Gran?? 08/05/23 17:02?? Rare? Slide Review?? 08/05/23 17:02?? Man Diff? Routine Chemistry?? LATEST RESULTS?? HISTORICAL RESULTS?? Sodium Level?? 08/05/23 17:02?? 132 ??Low?? 07/30/23?? 129 ??Low?? Potassium Level?? 08/05/23 17:02?? 2.8 ??Low?? 07/30/23?? 3.5?? Chloride Level?? 08/05/23 17:02?? 93 ??Low?? 07/30/23?? 97 ??Low?? CO2?? 08/05/23 17:02?? 26?? 07/30/23?? 21?? Alk Phos?? 08/05/23 17:02?? 95?? 07/30/23?? 84?? AST?? 08/05/23 17:02?? 144 ??High?? 07/30/23?? 15?? ALT?? 08/05/23 17:02?? 115 ??High?? 07/30/23?? 30?? BUN?? 08/05/23 17:02?? 17?? 07/30/23?? 19 ??High?? Glucose Level?? 08/05/23 17:02?? 120 ??High?? 07/30/23?? 183 ??High?? Creatinine Level?? 08/05/23 17:02?? 1.17?? 07/30/23?? 1.33 ??High?? eGFR AA?? 08/05/23 17:02?? 66?? 07/30/23?? 56 ??Low?? eGFR Non-AA?? 08/05/23 17:02?? 66?? 07/30/23?? 56 ??Low?? Calcium Level?? 08/05/23 17:02?? 9.0?? 07/30/23?? 9.0?? Protein Total?? 08/05/23 17:02?? 7.2?? 07/30/23?? 7.7?? Albumin Level?? 08/05/23 17:02?? 2.8 ??Low?? 07/30/23?? 3.7?? Bilirubin Total?? 08/05/23 17:02?? 0.8?? 07/30/23?? 0.7?? Lactic Acid Lvl?? 08/05/23 17:02?? 1.3? CRP?? 08/05/23 17:02?? 245.6 ??High? Cardiac Isoenzymes?? LATEST RESULTS?? CK?? 08/05/23 17:02?? 456 ??High? Thyroid Studies?? LATEST RESULTS?? TSH?? 08/05/23 17:02?? 0.761? UA Macroscopic?? LATEST RESULTS?? HISTORICAL RESULTS?? UA Color?? 08/05/23 17:30?? Yellow?? 07/30/23?? Yellow?? UA Appear?? 08/05/23 17:30?? Clear?? 07/30/23?? Clear?? UA Glucose?? 08/05/23 17:30?? Negative?? 07/30/23?? Negative?? UA Bili?? 08/05/23 17:30?? 1+ Abnormal?? 07/30/23?? Negative?? UA Ketones?? 08/05/23 17:30?? Negative?? 07/30/23?? Negative?? UA Spec Grav?? 08/05/23 17:30?? 1.020?? 07/30/23?? 1.025?? UA Blood?? 08/05/23 17:30?? 3+ Abnormal?? 07/30/23?? 2+ Abnormal?? UA pH?? 08/05/23 17:30?? 6.0?? 07/30/23?? 6.0?? UA Protein?? 08/05/23 17:30?? 2+ Abnormal?? 07/30/23?? 1+ Abnormal?? UA Urobilinogen?? 08/05/23 17:30?? Positive Abnormal?? 07/30/23?? Normal?? UA Nitrite?? 08/05/23 17:30?? Negative?? 07/30/23?? Negative?? UA Leuk Est?? 08/05/23 17:30?? Negative?? 07/30/23?? Negative?? UA Culture Ind?.?? 08/05/23 17:30?? Indicated?? 07/30/23?? Not Indicated? UA Microscopic?? LATEST RESULTS?? HISTORICAL RESULTS?? UA WBC?? 08/05/23 17:30?? 10-25 Abnormal?? 07/30/23?? 0-3?? UA RBC?? 08/05/23 17:30?? 3-5?? 07/30/23?? 3-5?? UA Squam Epithelial?? 08/05/23 17:30?? Rare?? 07/30/23?? None Seen?? UA Trans Epi?? 08/05/23 17:30?? Few? UA Mucous?? 08/05/23 17:30?? Rare Abnormal?? 07/30/23?? Moderate Abnormal?? UA Bacteria?? 08/05/23 17:30?? Few Abnormal?? 07/30/23?? Rare?? UA Hyal Cast?? 08/05/23 17:30?? Rare? UA Gran Cast?? 08/05/23 17:30?? Moderate? Infectious Disease?? LATEST RESULTS?? Adenovirus RespP-BFire?? 08/05/23 17:30?? Not Detected?? Bordetella parapertussis RespP-BFire?? 08/05/23 17:30?? Not Detected?? Bordetella pertussis RespP-BFire?? 08/05/23 17:30?? Not Detected?? Chlamydophila pneumoniae RespP-BFire?? 08/05/23 17:30?? Not Detected?? Coronavirus 229E (Not COVID-19) RP-BFire?? 08/05/23 17:30?? Not Detected?? Coronavirus HKU1 (Not COVID-19) RP-BFire?? 08/05/23 17:30?? Not Detected?? Coronavirus NL63 (Not COVID-19) RP-BFire?? 08/05/23 17:30?? Not Detected?? Coronavirus OC43 (Not COVID-19) RP-BFire?? 08/05/23 17:30?? Not Detected?? SARS-CoV-2 (COVID-19) RP-BFire?? 08/05/23 17:30?? Not Detected?? Human Metapneumonovirus RespP-BFire?? 08/05/23 17:30?? Not Detected?? Human Rhinovirus/Enterovirus RespP-BFir?? 08/05/23 17:30?? Not Detected?? Influenza A RespP-BFire?? 08/05/23 17:30?? Not Detected?? Influenza B RespP-BFire?? 08/05/23 17:30?? Not Detected?? Mycomplasma pneumoniae RespP-BFire?? 08/05/23 17:30?? Not Detected?? Parainfluenza Virus 1 RespP-BFire?? 08/05/23 17:30?? Not Detected?? Parainfluenza Virus 2 RespP-BFire?? 08/05/23 17:30?? Not Detected?? Parainfluenza Virus 3 RespP-BFire?? 08/05/23 17:30?? Not Detected?? Parainfluenza Virus 4 RespP-BFire?? 08/05/23 17:30?? Not Detected?? Respiratory Syncytial Virus RespP-BFire?? 08/05/23 17:30?? Not Detected? Electronically Signed on 08/05/2023 19:31 EDT Yas Godwin MD Emergency department Discharge instructions * Yas Godwin MD: PERFORM Event Display: ED Discharge Information Authored Date: [id number] GLENNSTAN Dayana :1950 Age:72 years Sex:Male Visit Date:08/05/2023 Primary Care Physician: Shawna Lentz CORE SETTER Discharge Instructions We would like to thank you for allowing us to assist you with your healthcare needs. The following includes patient education materials and information regarding your injury/illness. Diagnosis from Today's Visit Pneumonia Hypokalemia Weakness Discharge Vitals Temperature??(Temporal Artery) 98.8 ??F (37.1 ??C) Heart Rate??(Monitored) 95 Respiratory Rate?? 25 Blood Pressure?? 106/63?? SpO2?? 98% Height?? 70.47 in (179 cm) Weight?? 194.48 lb (88.2 kg) BMI?? 27.53 Allergies NSAIDs What to Do Next Instructions from Your Care Team Please call to schedule a follow-up with your primary care provider in the next 1 to 2 weeks.?? Take doxycycline 100 mg twice a day for 7 days.?? Take 40 mEq of potassium in the morning and then 20 mill equivalents twice a day??for 6 more doses. You Need to Schedule the Following Appointments Follow Up with??Follow up with primary care provider When:??Within 1 to 2 weeks You were treated today on an emergency basis; it may be watters to contact your primary care provider to notify them of your visit today. You may have been referred to your regular doctor or a specialist, please follow up as instructed. If your condition worsens or you can't get in to see the doctor, contact the Emergency Department. Medications What How Much When Why Instructions Next Dose New doxycycline (doxycycline hyclate 100 mg oral capsule) 1 Capsules Oral (given by mouth) 2 times a day Pneumonia Hypokalemia Weakness Duration: 7 Days Pickup at [facility] New potassium chloride (potassium chloride 20 mEq oral tablet, extended release) 1 tab Oral (given by mouth) 2 times a day Pneumonia Hypokalemia Weakness Duration: 3 Days Pickup at [facility] Unchanged dicyclomine (dicyclomine 20 mg oral tablet) Oral (given by mouth) Unchanged metoprolol (metoprolol succinate 50 mg oral capsule, extended release) Oral (given by mouth) Every day Unchanged omeprazole (omeprazole 20 mg oral delayed release capsule) Oral (given by mouth) Every day Unchanged simvastatin (simvastatin 20 mg oral tablet) Oral (given by mouth) Every night at bedtime Pharmacy Information [facility]: [address], [place] [phone] Education Materials Hypokalemia Hypokalemia means that the amount of potassium in the blood is lower than normal. Potassium is a mineral (electrolyte) that helps regulate the amount of fluid in the body. It also stimulates muscle tightening (contraction) and helps nerves work properly. Normally, most of the body's potassium is inside cells, and only a very small amount is in the blood. Because the amount in the blood is so small, minor changes to potassium levels in the blood can be life-threatening. What are the causes? This condition may be caused by: ? Antibiotic medicine. ? Diarrhea or vomiting. Taking too much of a medicine that helps you have a bowel movement (laxative)can cause diarrhea and lead to hypokalemia. ? Chronic kidney disease (CKD). ? Medicines that help the body get rid of excess fluid (diuretics). ? Eating disorders, such as anorexia or bulimia. ? Low magnesium levels in the body. ? Sweating a lot. What are the signs or symptoms? Symptoms of this condition include: ? Weakness. ? Constipation. ? Fatigue. ? Muscle cramps. ? Mental confusion. ? Skipped heartbeats or irregular heartbeat (palpitations). ? Tingling or numbness. How is this diagnosed? This condition is diagnosed with a blood test. How is this treated? This condition may be treated by: ? Taking potassium supplements. ? Adjusting the medicines that you take. ? Eating more foods that contain a lot of potassium. If your potassium level is very low, you may need to get potassium through an IV and be monitored in the hospital. Follow these instructions at home: Eating and drinking ? Eat a healthy diet. A healthy diet includes fresh fruits and vegetables, whole grains, healthy fats, and lean proteins. ? If told, eat more foods that contain a lot of potassium. These include: ? Nuts, such as peanuts and pistachios. ? Seeds, such as sunflower seeds and pumpkin seeds. ? Peas, lentils, and petersen beans. ? Whole grain and bran cereals and breads. ? Fresh fruits and vegetables, such as apricots, avocado, bananas, cantaloupe, kiwi, oranges, tomatoes, asparagus, and potatoes. ? Juices, such as orange, tomato, and prune. ? Lean meats, including fish. ? Milk and milk products, such as yogurt. General instructions ? Take sank-kmy-xmnujal and prescription medicines only as told by your health care provider. This includes vitamins, natural food products, and supplements. ? Keep all follow-up visits. This is important. Contact a health care provider if: ? You have weakness that gets worse. ? You feel your heart pounding or racing. ? You vomit. ? You have diarrhea. ? You have diabetes and you have trouble keeping your blood sugar in your target range. Get help right away if: ? You have chest pain. ? You have shortness of breath. ? You have vomiting or diarrhea that lasts for more than 2 days. ? You faint. These symptoms may be an emergency. Get help right away. Call 911. ? Do not wait to see if the symptoms will go away. ? Do not drive yourself to the hospital. Summary ? Hypokalemia means that the amount of potassium in the blood is lower than normal. ? This condition is diagnosed with a blood test. ? Hypokalemia may be treated by taking potassium supplements, adjusting the medicines that you take, or eating more foods that are high in potassium. ? If your potassium level is very low, you may need to get potassium through an IV and be monitored in the hospital. This information is not intended to replace advice given to you by your health care provider. Make sure you discuss any questions you have with your health care provider. Document Revised: 10/24/2021 Document Reviewed: 10/24/2021 [employer] Patient Education ?? 2022 [employer] Potassium Content of Foods Potassium is a mineral found in many foods and drinks. It can affect how the heart works, affect blood pressure, and keep fluids and electrolytes balanced in the body. It is important not to have toomuch potassium (hyperkalemia) or too little potassium (hypokalemia) in the body, especially in the blood. Potassium is naturally found in many different types of whole foods, such as fruits, vegetables, meat, and dairy products. Processed foods tend to be lower in potassium. The amount of potassium you need each day depends on your age and any medical conditions you may have. General recommendations are: ? Females aged 19 and older: 2,600 mg per day. ? Males aged 19 and older: 3,400 mg per day. Talk with your health care provider or dietitian about how much potassium you need. What foods are high in potassium? Below are examples of foods that have greater than 200 mg of potassium per serving. Fruits ? [place] ??? 1 medium (130 g) has 230 mg of potassium. ? Banana ??? 1 medium (120 g) has 420 mg of potassium. ? Cantaloupe, chunks ??? 1 cup (160 g) has 430 mg of potassium. Vegetables ? Potato, baked, without skin ??? 1 medium (170 g) has 600 mg of potassium. ? Broccoli, chopped, cooked ? cup (77.5 g) has 230 mg of potassium. ? Tomato, chopped or sliced ??? 1 cup (152 g) has 400 mg of potassium. Grains ? Cereal, bran with raisins ??? 1 cup (59 g) has 360 mg of potassium. ? Granola with almonds ? cup (82 g) has 220 mg of potassium. Meats and other proteins ? Ground beef aramis ??? 4 ounces (113 g) has 240 mg of potassium. ? Kidney beans, boiled ? cup (130 g) has 350 mg of potassium. ? Almonds ??? 1 ounce (approximately 22 nuts or 28 g) has 200 mg of potassium. Dairy ? Cow's milk, 1% ??? 1 cup (237 mL) has 360 mg of potassium. ? Plain vanilla low-fat yogurt ? cup (184 g) has 220 mg of potassium. The items listed above may not be a complete list of foods high in potassium. Actual amounts of potassium may be different depending on ripeness, shelf life, and food preparation. Contact a dietitianfor more information. What foods are low in potassium? Below are examples of foods that have less than 200 mg of potassium per serving. Fruits ? Blueberries ??? 1 cup (145 g) has 110 mg of potassium. ? Apple ??? 1 medium (140 g) has 145 mg of potassium. ? Grapes ??? 1 cup (160 g) has 175 mg of potassium. Vegetables ? Cabbage, raw ??? 1 cup (70 g) has 120 mg of potassium. ? Cauliflower, chopped, cooked ??? 1 cup (180 g) has 90 mg of potassium. ? Antonio lettuce, chopped ??? 1 cup (56 g) has 120 mg of potassium. Grains ? Bagel, plain ??? one 4-inch (10 cm) has 100 mg of potassium. ? Whole wheat bread ??? 1 slice (26 g) has 70 mg of potassium. ? White rice, cooked ??? 1 cup (163 g) has 50 mg of potassium. Meats and other proteins ? Tuna, light, canned in water ??? 3 ounces (85 g) has 150 mg of potassium. ? Egg, fried ??? 1 large (50 g) has 60 mg of potassium. ? Peanuts ???1 ounce (35 nuts or 28 g) has 180 mg of potassium. ? Tofu ? cup (252 g) has 150 mg of potassium. Dairy ? Cheese (cheddar, juanito, mozzarella, or provolone) ??? 1 ounce (28 g) has 30 to 40 mg of potassium. The items listed above may not be a complete list of foods that are low in potassium. Actual amounts of potassium may be different depending on ripeness, shelf life, and food preparation. Contact a dietitian for more information. Summary ? Potassium is a mineral found in many foods and drinks. It affects how the heart works, affects blood pressure, and keeps fluids and electrolytes balanced in the body. ? The amount of potassium you need each day depends on your age and any existing medical conditions you may have. ? Your health care provider or dietitian may recommend an amount of potassium that you should have each day. This information is not intended to replace advice given to you by your health care provider. Make sure you discuss any questions you have with your health care provider. Document Revised: 11/12/2021 Document Reviewed: 10/24/2021 [employer] Patient Education ?? 2022 [employer]. Community-Acquired Pneumonia, Adult Pneumonia is a lung infection that causes inflammation and the buildup of mucus and fluids in the lungs. This may cause coughing and difficulty breathing. Community-acquired pneumonia is pneumonia that develops in people who are not, and have not recently been, in a hospital or other health care facility. Usually, pneumonia develops as a result of an illness that is caused by a virus, such as the commoncold and the flu (influenza). It can also be caused by bacteria or fungi. While the common cold andinfluenza can pass from person to person (are contagious), pneumonia itself is not considered contagious. What are the causes? This condition may be caused by: ? Viruses. ? Bacteria. ? Fungi. What increases the risk? The following factors may make you more likely to develop this condition: ? Being over age 65 or having certain medical conditions, such as: ? A long-term (chronic) disease, such as: chronic obstructive pulmonary disease (COPD), asthma, heartfailure, diabetes, or kidney disease. ? A condition that increases the risk of breathing in (aspirating) mucus and other fluids from your mouth and nose. ? A weakened body defense system (immune system). ? Having had your spleen removed (splenectomy). The spleen is the organ that helps fight germs and infections. ? Not cleaning your teeth and gums well (poor dental hygiene). ? Using tobacco products. ? Traveling to places where germs that cause pneumonia are present or being near certain animals or animal habitats that could have germs that cause pneumonia. What are the signs or symptoms? Symptoms of this condition include: ? A dry cough or a wet (productive) cough. ? A fever, sweating, or chills. ? Chest pain, especially when breathing deeply or coughing. ? Fast breathing, difficulty breathing, or shortness of breath. ? Tiredness (fatigue) and muscle aches. How is this diagnosed? This condition may be diagnosed based on your medical history or a physical exam. You may also havetests, including: ? Imaging, such as a chest X-ray or lung ultrasound. ? Tests of: ? The level of oxygen and other gases in your blood. ? Mucus from your lungs (sputum). ? Fluid around your lungs (pleural fluid). ? Your urine. How is this treated? Treatment for this condition depends on many factors, such as the cause of your pneumonia, your medicines, and other medical conditions that you have. For most adults, pneumonia may be treated at home. In some cases, treatment must happen in a hospital and may include: ? Medicines that are given by mouth (orally) or through an IV, including: ? Antibiotic medicines, if bacteria caused the pneumonia. ? Medicines that kill viruses (antiviral medicines), if a virus caused the pneumonia. ? Oxygen therapy. Severe pneumonia, although rare, may require the following treatments: ? Mechanical ventilation.This procedure uses a machine to help you breathe if you cannot breathe wellon your own or maintain a safe level of blood oxygen. ? Thoracentesis. This procedure removes any buildup of pleural fluid to help with breathing. Follow these instructions at home: Medicines ? Take [id number] and prescription medicines only as told by your health care provider. ? Take cough medicine only if you have trouble sleeping. Cough medicine can prevent your body from removing mucus from your lungs. ? If you were prescribed antibiotics, take them as told by your health care provider. Do not stop taking the antibiotic even if you start to feel better. Lifestyle ? Do not drink alcohol. ? Do not use any products that contain nicotine or tobacco. These products include cigarettes, chewing tobacco, and vaping devices, such as e-cigarettes. If you need help quitting, ask your health careprovider. ? Eat a healthy diet. This includes plenty of vegetables, fruits, whole grains, low-fat dairy products, and lean protein. General instructions ? Rest a lot and get at least 8 hours of sleep each night. ? Sleep in a partly upright position at night. Place a few pillows under your head or sleep in a reclining chair. ? Return to your normal activities as told by your health care provider. Ask your health care provider what activities are safe for you. ? Drink enough fluid to keep your urine pale yellow. This helps to thin the mucus in your lungs. ? If your throat is sore, gargle with a mixture of salt and water 3???4 times a day or as needed. To make salt water, completely dissolve ?1 tsp (3???6 g) of salt in 1 cup (237 mL) of warm water. ? Keep all follow-up visits. How is this prevented? You can lower your risk of developing community-acquired pneumonia by: ? Getting the pneumonia vaccine. There are different types and schedules of pneumonia vaccines. Ask your health care provider which option is best for you. Consider getting the pneumonia vaccine if: ? You are older than 65 years of age. ? You are 19???65 years of age and are receiving cancer treatment, have chronic lung disease, or haveother medical conditions that affect your immune system. Ask your health care provider if this applies to you. ? Getting your influenza vaccine every year. Ask your health care provider which type of vaccine is best for you. ? Getting regular dental checkups. ? Washing your hands often with soap and water for at least 20 seconds. If soap and water are not available, use hand orthopedics teacher. Contact a health care provider if: ? You have a fever. ? You have trouble sleeping because you cannot control your cough with cough medicine. Get help right away if: ? Your shortness of breath becomes worse. ? Your chest pain increases. ? Your sickness becomes worse, especially if you are an older adult or have a weak immune system. ? You cough up blood. These symptoms may be an emergency. Get help right away. Call 911. ? Do not wait to see if the symptoms will go away. ? Do not drive yourself to the hospital. Summary ? Pneumonia is an infection of the lungs. ? Community-acquired pneumonia develops in people who have not been in the hospital. It can be causedby bacteria, viruses, or fungi. ? This condition may be treated with antibiotics or antiviral medicines. ? Severe pneumonia may require a hospital stay and treatment to help with breathing. This information is not intended to replace advice given to you by your health care provider. Make sure you discuss any questions you have with your health care provider. Document Revised: 04/09/2022 Document Reviewed: 04/09/2022 Else[employer] Patient Education ?? 2022 [employer] Tests Performed Medications and Immunizations Administered Given 0.9% NaCl bolus, 1000 mL, Hydration Bolus potassium chloride, 40 mEq, Oral Lab Test Name Test Result Date/Time WBC 7.1 x10^3/mcL 08/05/2023 17:02 EDT RBC 4.2 x10^6/mcL 08/05/2023 17:02 EDT Hgb 13.2 g/dL 08/05/2023 17:02 EDT Hct 36.5 % 08/05/2023 17:02 EDT MCV 86.7 fL 08/05/2023 17:02 EDT MCH 31.4 pg 08/05/2023 17:02 EDT MCHC 36.2 g/dL 08/05/2023 17:02 EDT RDW-CV 12.9 % 08/05/2023 17:02 EDT Platelets 196 x10^3/mcL 08/05/2023 17:02 EDT Segs Man 83 % 08/05/2023 17:02 EDT Lymph Man 9 % 08/05/2023 17:02 EDT Hendry Man 5 % 08/05/2023 17:02 EDT Eos Man 0 % 08/05/2023 17:02 EDT Baso Man 0 % 08/05/2023 17:02 EDT Band Man 0 % 08/05/2023 17:02 EDT Lymph, Atyp Man 3 % 08/05/2023 17:02 EDT Abs Neut Man 5.9 x10^3/mcL 08/05/2023 17:02 EDT RBC Morph Abnormal 08/05/2023 17:02 EDT Anisocyte Rare 08/05/2023 17:02 EDT Dohle Bodies Rare 08/05/2023 17:02 EDT Hyperseg Rare 08/05/2023 17:02 EDT Hypochromia Rare 08/05/2023 17:02 EDT Microcyte Small 08/05/2023 17:02 EDT Macrocyte Rare 08/05/2023 17:02 EDT Plt Giant Rare 08/05/2023 17:02 EDT Toxic Gran Rare 08/05/2023 17:02 EDT Slide Review Man Diff 08/05/2023 17:02 EDT Sodium Level 132 mmol/L 08/05/2023 17:02 EDT Potassium Level 2.8 mmol/L 08/05/2023 17:02 EDT Chloride Level 93 mmol/L 08/05/2023 17:02 EDT CO2 26 mmol/L 08/05/2023 17:02 EDT Alk Phos 95 unit/L 08/05/2023 17:02 EDT AST 144 unit/L 08/05/2023 17:02 EDT ALT 115 unit/L 08/05/2023 17:02 EDT BUN 17 mg/dL 08/05/2023 17:02 EDT Glucose Level 120 mg/dL 08/05/2023 17:02 EDT Creatinine Level 1.17 mg/dL 08/05/2023 17:02 EDT eGFR AA 66 08/05/2023 17:02 EDT eGFR Non-AA 66 08/05/2023 17:02 EDT Calcium Level 9.0 mg/dL 08/05/2023 17:02 EDT Protein Total 7.2 g/dL 08/05/2023 17:02 EDT Albumin Level 2.8 g/dL 08/05/2023 17:02 EDT Bilirubin Total 0.8 mg/dL 08/05/2023 17:02 EDT Lactic Acid Lvl 1.3 mmol/L 08/05/2023 17:02 EDT CRP 245.6 mg/L 08/05/2023 17:02 EDT CK 456 unit/L 08/05/2023 17:02 EDT TSH 0.761 mcIntlUnit/mL 08/05/2023 17:02 EDT UA Color YELLOW. 08/05/2023 17:30 EDT UA Appear CLEAR. 08/05/2023 17:30 EDT UA Glucose NEGATIVE 08/05/2023 17:30 EDT UA Bili 1+ 08/05/2023 17:30 EDT UA Ketones NEGATIVE 08/05/2023 17:30 EDT UA Spec Grav 1.020 08/05/2023 17:30 EDT UA Blood 3+ 08/05/2023 17:30 EDT UA pH 6.0 08/05/2023 17:30 EDT UA Protein 2+ 08/05/2023 17:30 EDT UA Urobilinogen 1.0 Uro 08/05/2023 17:30 EDT UA Nitrite NEGATIVE 08/05/2023 17:30 EDT UA Leuk Est NEGATIVE 08/05/2023 17:30 EDT UA Culture Ind?. Indicated 08/05/2023 17:30 EDT UA WBC 10-25 08/05/2023 17:30 EDT UA RBC 3-5 08/05/2023 17:30 EDT UA Squam Epithelial Rare 08/05/2023 17:30 EDT UA Trans Epi Few 08/05/2023 17:30 EDT UA Mucous Rare 08/05/2023 17:30 EDT UA Bacteria Few 08/05/2023 17:30 EDT UA Hyal Cast Rare 08/05/2023 17:30 EDT UA Gran Cast Moderate 08/05/2023 17:30 EDT Adenovirus RespP-BFire Not Detected BF 08/05/2023 17:30 EDT Bordetella parapertussis RespP-BFire Not Detected BF 08/05/2023 17:30 EDT Bordetella pertussis RespP-BFire Not Detected BF 08/05/2023 17:30 EDT Chlamydophila pneumoniae RespP-BFire Not Detected BF 08/05/2023 17:30 EDT Coronavirus 229E (Not COVID-19) RP-BFire Not Detected BF 08/05/2023 17:30 EDT Coronavirus HKU1 (Not COVID-19) RP-BFire Not Detected BF 08/05/2023 17:30 EDT Coronavirus NL63 (Not COVID-19) RP-BFire Not Detected BF 08/05/2023 17:30 EDT Coronavirus OC43 (Not COVID-19) RP-BFire Not Detected BF 08/05/2023 17:30 EDT SARS-CoV-2 (COVID-19) RP-BFire Not Detected BF 08/05/2023 17:30 EDT Human Metapneumonovirus RespP-BFire Not Detected BF 08/05/2023 17:30 EDT Human Rhinovirus/Enterovirus RespP-BFir Not Detected BF 08/05/2023 17:30 EDT Influenza A RespP-BFire Not Detected BF 08/05/2023 17:30 EDT Influenza B RespP-BFire Not Detected BF 08/05/2023 17:30 EDT Mycomplasma pneumoniae RespP-BFire Not Detected BF 08/05/2023 17:30 EDT Parainfluenza Virus 1 RespP-BFire Not Detected BF 08/05/2023 17:30 EDT Parainfluenza Virus 2 RespP-BFire Not Detected BF 08/05/2023 17:30 EDT Parainfluenza Virus 3 RespP-BFire Not Detected BF 08/05/2023 17:30 EDT Parainfluenza Virus 4 RespP-BFire Not Detected BF 08/05/2023 17:30 EDT Respiratory Syncytial Virus RespP-BFire Not Detected BF 08/05/2023 17:30 EDT 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
--- OUTSIDE RECORDS SUMMARY | 2023-08-25 14:55 | XMS_ITS | Continuity of Care Document ---
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 Name Role Phone Shawna Lentz Primary Care Physician [facility] Date(s): 07/30/23 - 07/30/[address] [address] Encounter Diagnosis Fever(Discharge Diagnosis) - 07/30/23 Knee problem(Discharge Diagnosis) - 07/30/23 Viral illness(Discharge Diagnosis) - 07/30/23 Discharge Disposition: Home or Self Care Attending Physician: Yas Godwin MD Admitting Physician: Yas Godwin MD Allergies, Adverse Reactions, Alerts Substance Reaction Severity Status NSAIDs Unknown Active Functional Status 07/30/23 Family Member Travel History No recent t ravel Recent Travel History No recent travel Other exposure to Infectious Disease Non e [...] 0 Refill(s) Start Date: 07/27/21 Status: Ordered Mental Status 07/30/23 Eye Opening Response [place] Spontaneous ly Best Verbal Response Andrew Oriented Best Motor Response Andrew Obeys nayelian ds [place] Coma Score 15 Problem List Condition Confirmation Course Effective Dates [...] Surgery Completed Results Laboratory List Name Date Urinalysis Microscopic 07/30/23 Urinalysis with Micro if Indicated and C ulture if Indicated 07/30/23 CBC w/ Diff 07/30/23 Comprehensive Metabolic Panel 07/30/23 SARS-CoV-2 (COVID-19)/Flu/RSV (GeneXpert ) 07/30/23 Troponin-I 07/30/23 Automated Diff 07/30/23 Most recent to oldest [Reference Range]: 1 WBC [5.0-10.0 x10^3/mcL] 9.2 x10^3/mcL (07/30/23 6:35 PM) RBC [4.6-6.0 x10^6/mcL] 4.6 x10^6/mcL (07/30/23 6:35 PM) Neutro Auto [40.0-75.0 %] 87.1 % *HI* (07/30/23 6:35 PM) Lymph Auto [20.0-50.0 %] 6.6 % *LOW* (07/30/23 6:35 PM) Dimmit Auto [2.0-15.0 %] 5.7 % (07/30/23 6:35 PM) Basophil Auto [0.0-1.0 %] 0.1 % (07/30/23 6:35 PM) BUN [7-18 mg/dL] 19 mg/dL *HI* (07/30/23 6:35 PM) UA Color Yellow (07/30/23 8:25 PM) UA WBC [0-3] 0-3 (07/30/23 8:25 PM) Glucose Level [74-106 mg/dL] 183 mg/dL *HI* (07/30/23 6:35 PM) Potassium Level [3.5-5.1 mmol/L] 3.5 mmo l/L (07/30/23 6:35 PM) MCV [80.0-96.0 fL] 89.1 fL (07/30/23 6:35 PM) UA Urobilinogen Normal (07/30/23 8:25 PM) UA Bili [Negative] Negative (07/30/23 8:25 PM) UA Ketones Negative (07/30/23 8:25 PM) AST [15-37 unit/L] 15 unit/L (07/30/23 6:35 PM) ALT [16-63 unit/L] 30 unit/L (07/30/23 6:35 PM) MCHC [31.0-35.0 g/dL] 35.6 g/dL *HI* (07/30/23 6:35 PM) Troponin-I [0.0-76.2 pg/mL] 7.1 pg/mL (07/30/23 6:35 PM) Sodium Level [136-145 mmol/L] 129 mmol/L *LOW* (07/30/23 6:35 PM) UA RBC [0-2] 3-5 (07/30/23 8:25 PM) UA Leuk Est Negative (07/30/23 8:25 PM) UA Nitrite Negative (07/30/23 8:25 PM) UA Glucose [Negative] Negative (07/30/23 8:25 PM) Hct [41.0-51.0 %] 41.0 % (07/30/23 6:35 PM) UA Bacteria Rare /HPF (07/30/23 8:25 PM) Calcium Level [8.5-10.1 mg/dL] 9.0 mg/dL (07/30/23 6:35 PM) Albumin Level [3.4-5.0 g/dL] 3.7 g/dL (07/30/23 6:35 PM) Protein Total [6.4-8.2 g/dL] 7.7 g/dL (07/30/23 6:35 PM) UA Protein 1+ *ABN* (07/30/23 8:25 PM) MCH [26.0-32.0 pg] 31.7 pg (07/30/23 6:35 PM) Neutro Absolute 8.0 x10^3/mcL *NA* (07/30/23 6:35 PM) Bilirubin Total [0.2-1.0 mg/dL] 0.7 mg/d L (07/30/23 6:35 PM) Hgb [14.0-18.0 g/dL] 14.6 g/dL (07/30/23 6:35 PM) Alk Phos [46-146 unit/L] 84 unit/L (07/30/23 6:35 PM) UA Blood 2+ *ABN* (07/30/23 8:25 PM) UA Mucous Moderate /HPF *ABN* (07/30/23 8:25 PM) UA Spec Grav 1.025 *NA* (07/30/23 8:25 PM) Platelets [130-450 x10^3/mcL] 178 x10^3/ mcL (07/30/23 6:35 PM) CO2 [21-32 mmol/L] 21 mmol/L (07/30/23 6:35 PM) UA Squam Epithelial [None Seen] None See n (07/30/23 8:25 PM) UA pH 6.0 *NA* (07/30/23 8:25 PM) eGFR Non-AA [>=60] 56 *LOW* (07/30/23 6:35 PM) eGFR AA [>=60] 56 *LOW* (07/30/23 6:35 PM) UA Appear Clear (07/30/23 8:25 PM) Chloride Level [98-107 mmol/L] 97 mmol/L *LOW* (07/30/23 6:35 PM) RDW-CV [11.5-14.5 %] 12.4 % (07/30/23 6:35 PM) Imm Gran Auto [0.0-0.9 %] 0.5 % (07/30/23 6:35 PM) UA Culture Ind?. Not Indicated (07/30/23 8:25 PM) Creatinine Level [0.70-1.30 mg/dL] 1.33 mg/dL *HI* (07/30/23 6:35 PM) Employed in healthcare? Unknown *NA* (07/30/23 6:35 PM) Symptomatic as defined by CDC? Unknown *NA* (07/30/23 6:35 PM) Hospitalized due to COVID-19? Unknown *NA* (07/30/23 6:35 PM) In ICU? Unknown *NA* (07/30/23 6:35 PM) Group care resident? Unknown *NA* (07/30/23 6:35 PM) status? Unknown *NA* (07/30/23 6:35 PM) SARS-CoV-2(Covid19)PCR(GXpert COVFLURSV) [Negative] Negative (07/30/23 6:35 PM) Flu A ([facility]Xpert COVFLURSV) [Negative] Nega tive (07/30/23 6:35 PM) RSV ([facility]Xpert COVFLURSV) [Negative] Negati ve (07/30/23 6:35 PM) Flu B (GXpert COVFLURSV) [Negative] Nega tive (07/30/23 6:35 PM) Vital Signs Most recent to oldest [Reference Range]: 1 2 3 Temperature Temporal Artery [36-38 Deg C] 37.2 Deg C (07/30/23 6:20 PM) Peripheral Pulse Rate [60-100 bpm] 77 bpm (07/30/23 9:52 PM) 73 bpm (07/30/23 9:30 PM) 78 bpm (07/30/23 9:00 PM) Heart Rate Monitored [60-100 bpm] 74 bpm (07/30/23 9:30 PM) 78 bpm (07/30/23 9:00 PM) 81 bpm (07/30/23 8:30 PM) Respiratory Rate [12-24 br/min] 22 br/min (07/30/23 9:52 PM) 27 br/min *HI* (07/30/23 9:30 PM) 23 br/min (07/30/23 9:00 PM) Blood Pressure [90-140/60-90 mmHg] 118/70mmHg (07/30/23 9:30 PM) 122/70mmHg (07/30/23 9:00 PM) 124/73mmHg (07/30/23 8:30 PM) Mean Arterial Pressure, Cuff [65-140 mmHg] 86 mmHg (07/30/23 9:30 PM) 87 mmHg (07/30/23 9:00 PM) 90 mmHg (07/30/23 8:30 PM) Weight Estimated 91 kg (07/30/23 6:20 PM) Body Mass Index Estimated 28.4 kg/m2 (07/30/23 6:20 PM) Height/Length Estimated 179 cm (07/30/23 6:20 PM) Social History Social History Type Response Tobacco Current everyday tob acco user Tobacco Use:. 1 ppd per day. Sex Male Hospital Discharge Instructions Patient Education 07/30/2023 20:50:23 Chronic Knee Pain, Adult, Goia-xp-Ubpu Chronic Knee Pain, Adult Knee pain that lasts longer than 3 months is called chronic knee pain. You may have pain in one or both knees. Symptoms of chronic knee pain may also include swelling and stiffness. The most common cause is age-related wear and tear (osteoarthritis) of your knee joint. Many conditions can cause chronic knee pain. Treatment depends on the cause. The main treatments are physical therapy and weight loss. It may also be treated with medicines, injections, a knee sleeve or brace, and by using crutches. Rest, ice, pressure (compression), and elevation, also known as RICE therapy, may also be recommended. Follow these instructions at home: If you have a knee sleeve or brace: ??? Wear the knee sleeve or brace as told by your doctor. Take it off only as told by your doctor. ??? Loosen it if your toes: ??? Tingle. ??? Become numb. ??? Turn cold and blue. ??? Keep it clean. ??? If the sleeve or brace is not waterproof: ??? Do not let it get wet. ??? Ask your doctor if you may take it off when you take a bath or shower. If not, cover it with a watertight covering. Managing pain, stiffness, and swelling ??? If told, put heat on your knee. Do this as often as told by your doctor. Use the heat source that your doctor recommends, such as a moist heat pack or a heating pad. ??? If you have a removable knee sleeve or brace, take it off as told by your doctor. ??? Place a towel between your skin and the heat source. ??? Leave the heat on for 20???30 minutes. ??? Take off the heat if your skin turns bright red. This is very important. If you cannot feel pain, heat, or cold, you have a greater risk of getting burned. ??? If told, put ice on your knee. To do this: ??? If you have a removable knee sleeve or brace, take it off as told by your doctor. ??? Put ice in a plastic bag. ??? Place a towel between your skin and the bag. ??? Leave the ice on for 20 minutes, 2???3 times a day. ??? Take off the ice if your skin turns bright red. This is very important. If you cannot feel pain, heat, or cold, you have a greater risk of damage to the area. ??? Move your toes often. ??? Raise the injured area above the level of your heart while you are sitting or lying down. Activity ??? Avoid activities where both feet leave the ground at the same time (high- impact activities). Examples are running, jumping rope, and doing jumping jacks. ??? Follow the exercise plan that your doctor makes for you. Your doctor may suggest that you: ??? Avoid activities that make knee pain worse. You may need to change the exercises that you do, the sports that you participate in, or your job duties. ??? Wear shoes with cushioned soles. ??? Avoid sports that require running and sudden changes in direction. ??? Do exercises or physical therapy. This is planned to match your needs and your abilities. ??? Do exercises that increase your balance and strength, such as matthew chi and yoga. ??? Do not use your injured knee to support your body weight until your doctor says that you can. Use crutches as told by your doctor. ??? Return to your normal activities when your doctor says that it is safe. General instructions ??? Take wqtv-uch-wgfflkj and prescription medicines only as told by your doctor. ??? If you are overweight, work with your doctor and a food expert (dietitian) to set goals to loseweight. Being overweight can make your knee hurt more. ??? Do not smoke or use any products that contain nicotine or tobacco. If you need help quitting, ask your doctor. ??? Keep all follow-up visits. Contact a doctor if: ??? You have knee pain that is not getting better or gets worse. ??? You are not able to do your exercises due to knee pain. Get help right away if: ??? Your knee swells and the swelling gets worse. ??? You cannot move your knee. ??? You have very bad knee pain. Summary ??? Knee pain that lasts more than 3 months is called chronic knee pain. ??? The main treatments for chronic knee pain are physical therapy and weight loss. You may also need to take medicines, wear a knee sleeve or brace, use crutches, and put ice or heat on your knee. ??? Lose weight if you are overweight. Work with your doctor and a food expert (dietitian) to help you set goals to lose weight. Being overweight can make your knee hurt more. ??? Follow the exercise plan that your doctor makes for you. This information is not intended to replace advice given to you by your health care provider. Make sure you discuss any questions you have with your health care provider. Document Revised: 07/25/2020 Document Reviewed: 07/25/2020 [employer] Patient Education ?? 2022 [employer]. 07/30/2023 20:49:54 Viral Illness, Adult Viral Illness, Adult Viruses are tiny germs that can get into a person's body and cause illness. There are many different types of viruses, and they cause many types of illness. Viral illnesses can range from mild to severe. They can affect various parts of the body. Short-term conditions that are caused by a virus include colds and the flu (influenza). Long-term conditions that are caused by a virus include herpes, shingles, and HIV (human immunodeficiency virus) infection. A few viruses have been linked to certain cancers. What are the causes? Many types of viruses can cause illness. Viruses invade cells in your body, multiply, and cause theinfected cells to work abnormally or . When these cells , they release more of the virus. When this happens, you develop symptoms of the illness, and the virus continues to spread to other cells. If the virus takes over the function of the cell, it can cause the cell to divide and grow out ofcontrol. This happens when a virus causes cancer. Different viruses get into the body in different ways. You can get a virus by: ??? Swallowing food or water that has come in contact with the virus (is contaminated). ??? Breathing in droplets that have been coughed or sneezed into the air by an infected person. ??? Touching a surface that has been contaminated with the virus and then touching your eyes, nose,or mouth. ??? Being bitten by an insect or animal that carries the virus. ??? Having sexual contact with a person who is infected with the virus. ??? Being exposed to blood or fluids that contain the virus, either through an open cut or during atransfusion. If a virus enters your body, your body's defense system (immune system) will try to fight the virus. You may be at higher risk for a viral illness if your immune system is weak. What are the signs or symptoms? You may have these symptoms, depending on the type of virus and the location of the cells that it invades: ??? Cold and flu viruses: ??? Fever. ??? Headache. ??? Sore throat. ??? Muscle aches. ??? Stuffy nose (nasal congestion). ??? Cough. ??? Digestive system (gastrointestinal) viruses: ??? Fever. ??? Pain in the abdomen. ??? Nausea. ??? Diarrhea. ??? Liver viruses (hepatitis): ??? Loss of appetite. ??? Tiredness. ??? Skin or the white parts of your eyes turning yellow (jaundice). ??? Brain and spinal cord viruses: ??? Fever. ??? Headache. ??? Stiff neck. ??? Nausea and vomiting. ??? Confusion or sleepiness. ??? Skin viruses: ??? Warts. ??? Itching. ??? Rash. ??? Sexually transmitted viruses: ??? Discharge. ??? Swelling. ??? Redness. ??? Rash. How is this diagnosed? This condition may be diagnosed based on one or more of the following: ??? Symptoms. ??? Medical history. ??? Physical exam. ??? Blood test, sample of mucus from your lungs (sputum sample), stool sample, or a swab of body fluids or a skin sore (lesion). How is this treated? Viruses can be hard to treat because they live within cells. Antibiotic medicines do not treat viruses because these medicines do not get inside cells. Treatment for a viral illness may include: ??? Resting and drinking plenty of fluids. ??? Medicines to relieve symptoms. These can include xjju-oii-xwitaic medicine for pain and fever, medicines for cough or congestion, and medicines to relieve diarrhea. ??? Antiviral medicines. These medicines are available only for certain types of viruses. Some viral illnesses can be prevented with vaccinations. A common example is the flu shot. Follow these instructions at home: Medicines ??? Take dhxe-cdx-tzsauid and prescription medicines only as told by your health care provider. ??? If you were prescribed an antiviral medicine, take it as told by your health care provider. Do not stop taking the antiviral even if you start to feel better. ??? Be aware of when antibiotics are needed and when they are not needed. Antibiotics do not treat viruses. You may get an antibiotic if your health care provider thinks that you may have, or are at risk for, a bacterial infection and you have a viral infection. ??? Do not ask for an antibiotic prescription if you have been diagnosed with a viral illness. Antibiotics will not make your illness go away faster. ??? Frequently taking antibiotics when they are not needed can lead to antibiotic resistance. When this develops, the medicine no longer works against the bacteria that it normally fights. General instructions ??? Drink enough fluids to keep your urine pale yellow. ??? Rest as much as possible. ??? Return to your normal activities as told by your health care provider. Ask your health care provider what activities are safe for you. ??? Keep all follow-up visits as told by your health care provider. This is important. How is this prevented? To reduce your risk of viral illness: ??? Wash your hands often with soap and water for at least 20 seconds. If soap and water are not available, use hand fishery division chief. ??? Avoid touching your nose, eyes, and mouth, especially if you have not washed your hands recently. ??? If anyone in your household has a viral infection, clean all household surfaces that may have been in contact with the virus. Use soap and hot water. You may also use bleach that you have added water to (diluted). ??? Stay away from people who are sick with symptoms of a viral infection. ??? Do not share items such as toothbrushes and water bottles with other people. ??? Keep your vaccinations up to date. This includes getting a yearly flu shot. ??? Eat a healthy diet and get plenty of rest. Contact a health care provider if: ??? You have symptoms of a viral illness that do not go away. ??? Your symptoms come back after going away. ??? Your symptoms get worse. Get help right away if you have: ??? Trouble breathing. ??? A severe headache or a stiff neck. ??? Severe vomiting or pain in your abdomen. These symptoms may represent a serious problem that is an emergency. Do not wait to see if the symptoms will go away. Get medical help right away. Call your local emergency services (911 in the [place] Do not drive yourself to the hospital. Summary ??? Viruses are types of germs that can get into a person's body and cause illness. Viral illnessescan range from mild to severe. They can affect various parts of the body. ??? Viruses can be hard to treat. There are medicines to relieve symptoms, and there are some antiviral medicines. ??? If you were prescribed an antiviral medicine, take it as told by your health care provider. Do not stop taking the antiviral even if you start to feel better. ??? Contact a health care provider if you have symptoms of a viral illness that do not go away. This information is not intended to replace advice given to you by your health care provider. Make sure you discuss any questions you have with your health care provider. Document Revised: 06/25/2020 Document Reviewed: 12/20/2019 [employer] Patient Education ?? 2022 [employer] Follow Up Care 07/30/2023 18:19:29 With:Shawna Lentz MACHINIST MATE Address: [address] [place] [id number]- When:1 week only if needed Physician Emergency department Note * Merrill aNranjo MD: PERFORM Event Display: ED Note Physician Authored Date: [id number] STAN ELIZABETH :1950 Age:72 years Sex:Male Visit Date:07/30/2023 Primary Care Physician: Shawna Lentz MACHINIST MATE I obtained signout from Dr. Godwin pending results of??gene expert??swab and reassessment. 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 ??He mention a headache but he states he chronically has headache and it is similar to previous??and was not a focus??of his complaints to me. ??He mentions some k nee pain for the last year with no recent trauma.?? But no significant??cough or??congestion??and no abdominal pain vomiting or diarrhea no urinary symptoms.?? Genetics. ??Swab was negative, CBC CMP unremarkable. ??I added a urine analysis that does not suggest infection.?? I reexamined his left knee and there is no signs of joint effusion or??septic arthritis. ??There is no erythema or warmth.??Both lower extremities are nonswollen and are normally perfused.?? Patient is mentating normally with no signs of encephalitis clinically,??did a chest x-ray that does not show pneumonia head CT was done which was unremarkable per radiologist.?? Here the patient got some IV fluids,??was eating and??felt normal.?? I offered a work note but he did not think he needed 1.?? Will recommend rest, fluids, moving around slowly, some Tylenol??as needed and follow-up if no improvement in the next 3 to 4 days. ??Discharged in stable condition ?? Last 24 Hours?? Chemistry ? Event Name?? Event Result?? Date/Time?? Sodium Level 129 mmol/L??Low 07/30/23 18:35:00 Potassium Level 3.5 mmol/L 07/30/23 18:35:00 Chloride Level 97 mmol/L??Low 07/30/23 18:35:00 CO2 21 mmol/L 07/30/23 18:35:00 Alk Phos 84 unit/L 07/30/23 18:35:00 AST 15 unit/L 07/30/23 18:35:00 ALT 30 unit/L 07/30/23 18:35:00 BUN 19 mg/dL??High 07/30/23 18:35:00 Glucose Level 183 mg/dL??High 07/30/23 18:35:00 Creatinine Level 1.33 mg/dL??High 07/30/23 18:35:00 eGFR AA 56??Low 07/30/23 18:35:00 eGFR Non-AA 56??Low 07/30/23 18:35:00 Calcium Level 9 mg/dL 07/30/23 18:35:00 Protein Total 7.7 g/dL 07/30/23 18:35:00 Albumin Level 3.7 g/dL 07/30/23 18:35:00 Bilirubin Total 0.7 mg/dL 07/30/23 18:35:00 Troponin-I 7.1 pg/mL 07/30/23 18:35:00 ? Hematology ? Event Name?? Event Result?? Date/Time?? WBC 9.2 x10^3/mcL 07/30/23 18:35:00 RBC 4.6 x10^6/mcL 07/30/23 18:35:00 Hgb 14.6 g/dL 07/30/23 18:35:00 Hct 41 % 07/30/23 18:35:00 MCV 89.1 fL 07/30/23 18:35:00 MCH 31.7 pg 07/30/23 18:35:00 MCHC 35.6 g/dL??High 07/30/23 18:35:00 RDW-CV 12.4 % 07/30/23 18:35:00 Platelets 178 x10^3/mcL 07/30/23 18:35:00 Neutro Auto 87.1 %??High 07/30/23 18:35:00 Lymph Auto 6.6 %??Low 07/30/23 18:35:00 Dimmit Auto 5.7 % 07/30/23 18:35:00 Basophil Auto 0.1 % 07/30/23 18:35:00 Imm Gran Auto 0.5 % 07/30/23 18:35:00 Neutro Absolute 8 x10^3/mcL 07/30/23 18:35:00 ? Urinalysis ? Event Name?? Event Result?? Date/Time?? UA Color YELLOW. 07/30/23 20:25:00 UA Appear CLEAR. 07/30/23 20:25:00 UA Glucose NEGATIVE 07/30/23 20:25:00 UA Bili NEGATIVE 07/30/23 20:25:00 UA Ketones NEGATIVE 07/30/23 20:25:00 UA Spec Grav 1.025 07/30/23 20:25:00 UA Blood 2+ Abnormal 07/30/23 20:25:00 UA pH 6.0 07/30/23 20:25:00 UA Protein 1+ Abnormal 07/30/23 20:25:00 UA Urobilinogen 0.2 Uro 07/30/23 20:25:00 UA Nitrite NEGATIVE 07/30/23 20:25:00 UA Leuk Est NEGATIVE 07/30/23 20:25:00 UA Culture Ind?. Not Indicated 07/30/23 20:25:00 UA WBC 0-3 07/30/23 20:25:00 UA RBC 3-5 07/30/23 20:25:00 UA Squam Epithelial None Seen 07/30/23 20:25:00 UA Mucous Moderate Abnormal 07/30/23 20:25:00 UA Bacteria Rare 07/30/23 20:25:00 ? All Other Results ? Event Name?? Event Result?? Date/Time?? Employed in healthcare? Unknown 07/30/23 18:35:00 Symptomatic as defined by CDC? Unknown 07/30/23 18:35:00 Hospitalized due to COVID-19? Unknown 07/30/23 18:35:00 In ICU? Unknown 07/30/23 18:35:00 Group care resident? Unknown 07/30/23 18:35:00 status? Unknown 07/30/23 18:35:00 SARS-CoV-2(Covid19)PCR([facility]Xpert COVFLURSV) NEGATIVE 07/30/23 18:35:00 Flu A ([facility]pert COVFLURSV) NEGATIVE 07/30/23 18:35:00 Flu B ([facility]pert COVFLURSV) Neg-GeneXPert 07/30/23 18:35:00 RSV ([facility]pert COVFLURSV) Neg-GeneXPert 07/30/23 18:35:00 ? Images * Final Report * ?? XR Knee Complete 4+ Views Left PROCEDURE INFORMATION:?? Exam: XR Left Knee?? Exam date and time: 07/30/2023 8:30 PM?? Age: 72 years old?? Clinical indication: Pain? TECHNIQUE:?? Imaging protocol: Radiologic exam of the left knee.?? Views: 4 or more views.? COMPARISON:?? No relevant prior studies available.? FINDINGS:?? Bones/joints: Osseous alignment is normal. No acute fracture or joint?? fluid. Mild tricompartmental joint space narrowing. Mild?? chondrocalcinosis of the menisci.?? Soft tissues: Normal.? IMPRESSION:?? No acute abnormality. ??Minimal degenerative changes noted. ?? Report signed by: Faisal Nguyen On 07/30/2023 ??21:36:01 [1] ? URL This document has an image ?? CT Brain/Head w/o Contrast PROCEDURE INFORMATION:?? Exam: CT Head Without Contrast?? Exam date and time: 07/30/2023 8:26 PM?? Age: 72 years old?? Clinical indication: Headache? TECHNIQUE:?? Imaging protocol: Computed tomography of the head without contrast.?? Radiation optimization: All CT scans at this facility use at least?? one of these dose optimization techniques: automated exposure?? control; mA and/or kV adjustment per patient size (includes targeted?? exams where dose is matched to clinical indication); or iterative?? reconstruction.? COMPARISON:?? No relevant prior studies available.? FINDINGS:?? Brain: Normal. No hemorrhage. Unremarkable white matter. No mass?? effect.?? Cerebral ventricles: No ventriculomegaly.?? Paranasal sinuses: Visualized sinuses are unremarkable. No fluid?? levels.?? Mastoid air cells: Visualized mastoid air cells are well aerated.?? Bones: Unremarkable. No acute fracture.?? Soft tissues: Unremarkable.? IMPRESSION:?? No acute intracranial abnormality.? [2] * Final Report * ?? XR Chest 1 View PROCEDURE INFORMATION:?? Exam: XR Chest?? Exam date and time: 07/30/2023 8:30 PM?? Age: 72 years old?? Clinical indication: Fever? TECHNIQUE:?? Imaging protocol: Radiologic exam of the chest.?? Views: 1 view.? COMPARISON:?? CT CHEST LOW DOSE CA SCREENING 07/09/2021 12:56 PM? FINDINGS:?? Lungs: Unremarkable. No consolidation.?? Pleural spaces: Unremarkable. No pleural effusion. No pneumothorax.?? Heart/Mediastinum: Unremarkable. No cardiomegaly.?? Bones/joints: Moderate degenerative changes of the spine. No acute?? fracture.? IMPRESSION:?? No acute disease ?? Report signed by: Faisal Nguyen On 07/30/2023 ??21:36:41 ? [3] [1]??XR Knee Complete 4+ Views Left; DomainUser, Generated 07/30/2023 20:30 EDT [2]??CT Brain/Head w/o Contrast; DomainUser, Generated 07/30/2023 20:26 EDT [3]??XR Chest 1 View; DomainUser, Generated 07/30/2023 20:30 EDT Electronically Signed on 07/30/2023 21:48 EDT Merrill Naranjo MD * Yas Godwin MD: PERFORM Event Display: ED Note Physician Authored Date: [id number] STAN ELIZABETH :1950 Age:72 years Sex:Male Visit Date:07/30/2023 Primary Care Physician: Shawna Lentz NP Basic Information Time Seen: Yas Godwin MD / 07/30/2023 18:29 Chief Complaint Thursday was hot thursday I started falling multiple times and my left knee kept giving out, and it'sbeen bothering me for a while. Temp 101.3 in EMS. pt pale and diaphoretic on arrival History Of Present Illness: Patient reports temp of 103 prior to arrival.?? Patient reports over the last 3 days he has not felt well??but also reports over the last couple weeks he has not felt??100%??when asked.?? No ear painno nasal discharge??no sore throat.?? Positive headache over the last 3 days??no vision changes no hearing changes??ongoing chronic cough no significant change??no significant chest pain??positive nausea no vomiting no diarrhea no urinary symptoms no extremity edema no skin rashes.?? Patient reports over the last couple days he has fallen several times??feeling like his left knee gives out on him.?? He has some ongoing left knee issues.?? Patient reports he smokes a pack a day.?? Patient reports over the last 3 days he has had a headache he states it is 3 out of 10??he states he has had previous headaches that have been similar however this 1 has seemed to last longer than most.?? Patient lives??at home alone. Review of Systems: see hpi for ros Physical Exam Vitals & Measurements T:??37.2?C ??(Temporal Artery)?? HR:??95??(Peripheral)?? HR:??96??(Monitored)?? RR:??22?? BP:??140/70?? SpO2:??93%?? HT:??179??cm?? WT:??91??kg??(Estimated)?? BMI:??28.4?? O2 Therapy:??Room air?? General: Alert and oriented, well nourished,?No??acute distress Eye: PER?Normal??conjunctiva,??No??scleral icterus HENT: Normocephalic,??nontraumatic??Normal hearing Lungs: Clear to auscultation,?Non-labored?? respiration Heart:?Normal?? rate,?Regular??rhythm,?No??murmur,?No??gallop,?No??edema [...] facial asymmetry CN IX, X-uvula midline CN XI- head turning equally bilaterally against resistance CN XII-normal tongue movement, no atrophy, no fasciculations, no weakness Motor: Normal muscle bulk, normal tone, no pronator drift. Strength 5/5 throughout all muscle groups in all 4 extremities. Able to move all extremities without difficulty Sensory: Sensation grossly intact to light touch in all 4 extremities Gait: Able to stand without assistance, normal gait Cerebellar: No nystagmus, normal kioquo-if-rjmy test (no dysmetria) Medical Decision Making: For MDM please see under assessment and plan Procedure No Qualifying Data Assessment/Plan 1.??Fever??R50.9 ??Patient with??fever??prior to arrival??and not feeling well over the last 3 days patient will get1 L of IV fluids??patient is given 1000 mg of Tylenol here in the emergency department.?We will see if this improves patient's??headache??and his symptoms.?? Sign out given to Dr Naranjo. 2.??Knee problem??M25.9 ??I think patient's knee giving out on him this is??ongoing knee problems and do not think that this represents??a stroke for patient neuroexam here is reassuring. Medication Reconciliation Unchanged dicyclomine (dicyclomine 20 mg oral tablet)Oral [...] 0.9% NaCl bolus, 1000 mL, Hydration Bolus acetaminophen, 1000 mg, Oral Allergies NSAIDs Social History Alcohol Never Electronic Cigarette/Vaping Electronic Cigarette Use: Unknown/not obtained. Substance Use Never Tobacco Current everyday tobacco user Tobacco Use:. 1 ppd per day. Lab Results CBC and Differential?? LATEST RESULTS?? WBC?? 07/30/23 18:35?? 9.2?? RBC?? 07/30/23 18:35?? 4.6?? Hgb?? 07/30/23 18:35?? 14.6?? Hct?? 07/30/23 18:35?? 41.0?? MCV?? 07/30/23 18:35?? 89.1?? MCH?? 07/30/23 18:35?? 31.7?? MCHC?? 07/30/23 18:35?? 35.6 ??High?? RDW-CV?? 07/30/23 18:35?? 12.4?? Platelets?? 07/30/23 18:35?? 178?? Neutro Auto?? 07/30/23 18:35?? 87.1 ??High?? Lymph Auto?? 07/30/23 18:35?? 6.6 ??Low?? Dimmit Auto?? 07/30/23 18:35?? 5.7?? Basophil Auto?? 07/30/23 18:35?? 0.1?? Imm Gran Auto?? 07/30/23 18:35?? 0.5?? Neutro Absolute?? 07/30/23 18:35?? 8.0? Electronically Signed on 07/30/2023 18:59 EDT Yas Godwin MD Emergency department Discharge instructions * Merrill Naranjo MD: PERFORM Event Display: ED Discharge Information Authored Date: [id number] STAN ELIZABETH :1950 Age:72 years Sex:Male Visit Date:07/30/2023 Primary Care Physician: Shawna Lentz MACHINIST MATE Discharge Instructions We would like to thank you for allowing us to assist you with your healthcare needs. The following includes patient education materials and information regarding your injury/illness. Diagnosis from Today's Visit Fever Knee problem Viral illness Discharge Vitals Temperature??(Temporal Artery) 99.0 ??F (37.2 ??C) Heart Rate??(Peripheral) 73 Heart Rate??(Monitored) 74 Respiratory Rate?? 27 Blood Pressure?? 118/70?? SpO2?? 93% Height?? 70.47 in (179 cm) Weight??(Estimated) 200.66 lb (91 kg) BMI?? 28.4 Allergies NSAIDs What to Do Next Instructions from Your Care Team At this time there is no signs of a bacterial??infection causing the fever. ??It is likely due to avirus. ??You can take some Tylenol as needed for fever or bodyaches.?? Move around slowly, drink plenty of fluids, follow-up as needed if no improvement in the next 3 to 4 days.?? Return sooner if you have any new worsening or concerning symptoms.?? The knee pain may be due to some degenerative changes,??he can discuss with your doctor referral to orthopedics. You Need to Schedule the Following Appointments Follow Up with??Shawna Lentz MACHINIST MATE When:??Within 1 week, only if needed Where: [address] [place] [id number]- You were treated today on an emergency [...] Emergency Department. Medications What How Much When Instructions Next Dose Unchanged dicyclomine (dicyclomine 20 mg oral tablet) Oral (given by mouth) Unchanged metoprolol (metoprolol succinate 50 mg oral capsule, extended release) Oral (given by mouth) Every day Unchanged omeprazole (omeprazole 20 mg oral delayed release capsule) Oral (given by mouth) Every day Unchanged simvastatin (simvastatin 20 mg oral tablet) Oral (given by mouth) Every night at bedtime Education Materials Chronic Knee Pain, Adult Knee pain that lasts longer than 3 months is called chronic knee pain. You may have pain in one or both knees. Symptoms of chronic knee pain may also include swelling and stiffness. The most common cause is age-related wear and tear (osteoarthritis) of your knee joint. Many conditions can cause chronic knee pain. Treatment depends on the cause. The main treatments are physical therapy and weight loss. It may also be treated with medicines, injections, a knee sleeve or brace, and by using crutches. Rest, ice, pressure (compression), and elevation, also known as RICE therapy, may also be recommended. Follow these instructions at home: If you have a knee sleeve or brace: ? Wear the knee sleeve or brace as told by your doctor. Take it off only as told by your doctor. ? Loosen it if your toes: ? Tingle. ? Become numb. ? Turn cold and blue. ? Keep it clean. ? If the sleeve or brace is not waterproof: ? Do not let it get wet. ? Ask your doctor if you may take it off when you take a bath or shower. If not, cover it with a watertight covering. Managing pain, stiffness, and swelling ? If told, put heat on your knee. Do this as often as told by your doctor. Use the heat source that your doctor recommends, such as a moist heat pack or a heating pad. ? If you have a removable knee sleeve or brace, take it off as told by your doctor. ? Place a towel between your skin and the heat source. ? Leave the heat on for 20???30 minutes. ? Take off the heat if your skin turns bright red. This is very important. If you cannot feel pain, heat, or cold, you have a greater risk of getting burned. ? If told, put ice on your knee. To do this: ? If you have a removable knee sleeve or brace, take it off as told by your doctor. ? Put ice in a plastic bag. ? Place a towel between your skin and the bag. ? Leave the ice on for 20 minutes, 2???3 times a day. ? Take off the ice if your skin turns bright red. This is very important. If you cannot feel pain, heat, or cold, you have a greater risk of damage to the area. ? Move your toes often. ? Raise the injured area above the level of your heart while you are sitting or lying down. Activity ? Avoid activities where both feet leave the ground at the same time (high-impact activities). Examples are running, jumping rope, and doing jumping jacks. ? Follow the exercise plan that your doctor makes for you. Your doctor may suggest that you: ? Avoid activities that make knee pain worse. You may need to change the exercises that you do, the sports that you participate in, or your job duties. ? Wear shoes with cushioned soles. ? Avoid sports that require running and sudden changes in direction. ? Do exercises or physical therapy. This is planned to match your needs and your abilities. ? Do exercises that increase your balance and strength, such as matthew chi and yoga. ? Do not use your injured knee to support your body weight until your doctor says that you can. Use crutches as told by your doctor. ? Return to your normal activities when your doctor says that it is safe. General instructions ? Take wowr-byo-kzkieoz and prescription medicines only as told by your doctor. ? If you are overweight, work with your doctor and a food expert (dietitian) to set goals to lose weight. Being overweight can make your knee hurt more. ? Do not smoke or use any products that contain nicotine or tobacco. If you need help quitting, ask your doctor. ? Keep all follow-up visits. Contact a doctor if: ? You have knee pain that is not getting better or gets worse. ? You are not able to do your exercises due to knee pain. Get help right away if: ? Your knee swells and the swelling gets worse. ? You cannot move your knee. ? You have very bad knee pain. Summary ? Knee pain that lasts more than 3 months is called chronic knee pain. ? The main treatments for chronic knee pain are physical therapy and weight loss. You may also need to take medicines, wear a knee sleeve or brace, use crutches, and put ice or heat on your knee. ? Lose weight if you are overweight. Work with your doctor and a food expert (dietitian) to help you set goals to lose weight. Being overweight can make your knee hurt more. ? Follow the exercise plan that your doctor makes for you. This information is not intended to replace advice given to you by your health care provider. Make sure you discuss any questions you have with your health care provider. Document Revised: 07/25/2020 Document Reviewed: 07/25/2020 [employer] Patient Education ?? 2022 [employer] Viral Illness, Adult Viruses are tiny germs that can get into a person's body and cause illness. There are many different types of viruses, and they cause many types of illness. Viral illnesses can range from mild to severe. They can affect various parts of the body. Short-term conditions that are caused by a virus include colds and the flu (influenza). Long-term conditions that are caused by a virus include herpes, shingles, and HIV (human immunodeficiency virus) infection. A few viruses have been linked to certain cancers. What are the causes? Many types of viruses can cause illness. Viruses invade cells in your body, multiply, and cause theinfected cells to work abnormally or . When these cells , they release more of the virus. When this happens, you develop symptoms of the illness, and the virus continues to spread to other cells. If the virus takes over the function of the cell, it can cause the cell to divide and grow out ofcontrol. This happens when a virus causes cancer. Different viruses get into the body in different ways. You can get a virus by: ? Swallowing food or water that has come in contact with the virus (is contaminated). ? Breathing in droplets that have been coughed or sneezed into the air by an infected person. ? Touching a surface that has been contaminated with the virus and then touching your eyes, nose, or mouth. ? Being bitten by an insect or animal that carries the virus. ? Having sexual contact with a person who is infected with the virus. ? Being exposed to blood or fluids that contain the virus, either through an open cut or during a transfusion. If a virus enters your body, your body's defense system (immune system) will try to fight the virus. You may be at higher risk for a viral illness if your immune system is weak. What are the signs or symptoms? You may have these symptoms, depending on the type of virus and the location of the cells that it invades: ? Cold and flu viruses: ? Fever. ? Headache. ? Sore throat. ? Muscle aches. ? Stuffy nose (nasal congestion). ? Cough. ? Digestive system (gastrointestinal) viruses: ? Fever. ? Pain in the abdomen. ? Nausea. ? Diarrhea. ? Liver viruses (hepatitis): ? Loss of appetite. ? Tiredness. ? Skin or the white parts of your eyes turning yellow (jaundice). ? Brain and spinal cord viruses: ? Fever. ? Headache. ? Stiff neck. ? Nausea and vomiting. ? Confusion or sleepiness. ? Skin viruses: ? Warts. ? Itching. ? Rash. ? Sexually transmitted viruses: ? Discharge. ? Swelling. ? Redness. ? Rash. How is this diagnosed? This condition may be diagnosed based on one or more of the following: ? Symptoms. ? Medical history. ? Physical exam. ? Blood test, sample of mucus from your lungs (sputum sample), stool sample, or a swab of body fluidsor a skin sore (lesion). How is this treated? Viruses can be hard to treat because they live within cells. Antibiotic medicines do not treat viruses because these medicines do not get inside cells. Treatment for a viral illness may include: ? Resting and drinking plenty of fluids. ? Medicines to relieve symptoms. These can include qvjs-ape-buwlwue medicine for pain and fever, medicines for cough or congestion, and medicines to relieve diarrhea. ? Antiviral medicines. These medicines are available only for certain types of viruses. Some viral illnesses can be prevented with vaccinations. A common example is the flu shot. Follow these instructions at home: Medicines ? Take xbnm-cha-lgpetby and prescription medicines only as told by your health care provider. ? If you were prescribed an antiviral medicine, take it as told by your health care provider. Do not stop taking the antiviral even if you start to feel better. ? Be aware of when antibiotics are needed and when they are not needed. Antibiotics do not treat viruses. You may get an antibiotic if your health care provider thinks that you may have, or are at riskfor, a bacterial infection and you have a viral infection. ? Do not ask for an antibiotic prescription if you have been diagnosed with a viral illness. Antibiotics will not make your illness go away faster. ? Frequently taking antibiotics when they are not needed can lead to antibiotic resistance. When thisdevelops, the medicine no longer works against the bacteria that it normally fights. General instructions ? Drink enough fluids to keep your urine pale yellow. ? Rest as much as possible. ? Return to your normal activities as told by your health care provider. Ask your health care provider what activities are safe for you. ? Keep all follow-up visits as told by your health care provider. This is important. How is this prevented? To reduce your risk of viral illness: ? Wash your hands often with soap and water for at least 20 seconds. If soap and water are not available, use hand fishery division chief. ? Avoid touching your nose, eyes, and mouth, especially if you have not washed your hands recently. ? If anyone in your household has a viral infection, clean all household surfaces that may have been in contact with the virus. Use soap and hot water. You may also use bleach that you have added waterto (diluted). ? Stay away from people who are sick with symptoms of a viral infection. ? Do not share items such as toothbrushes and water bottles with other people. ? Keep your vaccinations up to date. This includes getting a yearly flu shot. ? Eat a healthy diet and get plenty of rest. Contact a health care provider if: ? You have symptoms of a viral illness that do not go away. ? Your symptoms come back after going away. ? Your symptoms get worse. Get help right away if you have: ? Trouble breathing. ? A severe headache or a stiff neck. ? Severe vomiting or pain in your abdomen. These symptoms may represent a serious problem that is an emergency. Do not wait to see if the symptoms will go away. Get medical help right away. Call your local emergency services (911 in the [place] Do not drive yourself to the hospital. Summary ? Viruses are types of germs that can get into a person's body and cause illness. Viral illnesses canrange from mild to severe. They can affect various parts of the body. ? Viruses can be hard to treat. There are medicines to relieve symptoms, and there are some antiviralmedicines. ? If you were prescribed an antiviral medicine, take it as told by your health care provider. Do not stop taking the antiviral even if you start to feel better. ? Contact a health care provider if you have symptoms of a viral illness that do not go away. This information is not intended to replace advice given to you by your health care provider. Make sure you discuss any questions you have with your health care provider. Document Revised: 06/25/2020 Document Reviewed: 12/20/2019 [employer] Patient Education ?? 2022 [employer] Tests Performed Medications and Immunizations Administered Given 0.9% NaCl bolus, 1000 mL, Hydration Bolus acetaminophen, 1000 mg, Oral Lab Test Name Test Result Date/Time WBC 9.2 x10^3/mcL 07/30/2023 18:35 EDT RBC 4.6 x10^6/mcL 07/30/2023 18:35 EDT Hgb 14.6 g/dL 07/30/2023 18:35 EDT Hct 41.0 % 07/30/2023 18:35 EDT MCV 89.1 fL 07/30/2023 18:35 EDT MCH 31.7 pg 07/30/2023 18:35 EDT MCHC 35.6 g/dL 07/30/2023 18:35 EDT RDW-CV 12.4 % 07/30/2023 18:35 EDT Platelets 178 x10^3/mcL 07/30/2023 18:35 EDT Neutro Auto 87.1 % 07/30/2023 18:35 EDT Lymph Auto 6.6 % 07/30/2023 18:35 EDT Dimmit Auto 5.7 % 07/30/2023 18:35 EDT Basophil Auto 0.1 % 07/30/2023 18:35 EDT Imm Gran Auto 0.5 % 07/30/2023 18:35 EDT Neutro Absolute 8.0 x10^3/mcL 07/30/2023 18:35 EDT Sodium Level 129 mmol/L 07/30/2023 18:35 EDT Potassium Level 3.5 mmol/L 07/30/2023 18:35 EDT Chloride Level 97 mmol/L 07/30/2023 18:35 EDT CO2 21 mmol/L 07/30/2023 18:35 EDT Alk Phos 84 unit/L 07/30/2023 18:35 EDT AST 15 unit/L 07/30/2023 18:35 EDT ALT 30 unit/L 07/30/2023 18:35 EDT BUN 19 mg/dL 07/30/2023 18:35 EDT Glucose Level 183 mg/dL 07/30/2023 18:35 EDT Creatinine Level 1.33 mg/dL 07/30/2023 18:35 EDT eGFR AA 56 07/30/2023 18:35 EDT eGFR Non-AA 56 07/30/2023 18:35 EDT Calcium Level 9.0 mg/dL 07/30/2023 18:35 EDT Protein Total 7.7 g/dL 07/30/2023 18:35 EDT Albumin Level 3.7 g/dL 07/30/2023 18:35 EDT Bilirubin Total 0.7 mg/dL 07/30/2023 18:35 EDT Troponin-I 7.1 pg/mL 07/30/2023 18:35 EDT UA Color YELLOW. 07/30/2023 20:25 EDT UA Appear CLEAR. 07/30/2023 20:25 EDT UA Glucose NEGATIVE 07/30/2023 20:25 EDT UA Bili NEGATIVE 07/30/2023 20:25 EDT UA Ketones NEGATIVE 07/30/2023 20:25 EDT UA Spec Grav 1.025 07/30/2023 20:25 EDT UA Blood 2+ 07/30/2023 20:25 EDT UA pH 6.0 07/30/2023 20:25 EDT UA Protein 1+ 07/30/2023 20:25 EDT UA Urobilinogen 0.2 Uro 07/30/2023 20:25 EDT UA Nitrite NEGATIVE 07/30/2023 20:25 EDT UA Leuk Est NEGATIVE 07/30/2023 20:25 EDT UA Culture Ind?. Not Indicated 07/30/2023 20:25 EDT UA WBC 0-3 07/30/2023 20:25 EDT UA RBC 3-5 07/30/2023 20:25 EDT UA Squam Epithelial None Seen 07/30/2023 20:25 EDT UA Mucous Moderate 07/30/2023 20:25 EDT UA Bacteria Rare 07/30/2023 20:25 EDT Employed in healthcare? Unknown 07/30/2023 18:35 EDT Symptomatic as defined by CDC? Unknown 07/30/2023 18:35 EDT Hospitalized due to COVID-19? Unknown 07/30/2023 18:35 EDT In ICU? Unknown 07/30/2023 18:35 EDT Group care resident? Unknown 07/30/2023 18:35 EDT status? Unknown 07/30/2023 18:35 EDT SARS-CoV-2(Covid19)PCR(GXpert COVFLURSV) NEGATIVE 07/30/2023 18:35 EDT Flu A (GXpert COVFLURSV) NEGATIVE 07/30/2023 18:35 EDT Flu B (GXpert COVFLURSV) Neg-GeneXPert 07/30/2023 18:35 EDT RSV (GXpert COVFLURSV) Neg-GeneXPert 07/30/2023 18:35 EDT Patient/Survival Equipment Repairer Signature Patient Name:ELIZABETHSTAN I have received this information and my questions have been answered. Patient/Survival Equipment Repairer Name: Patient/Survival Equipment Repairer Signature: Relationship to Patient: Witness Name/Signature: Date: Electronically Signed on: 07/30/2023 21:51 EDTSigned by:RAMSEY Patient Care team information Care Team Personnel Name: Shawna Lentz MACHINIST MATE Position: PowerChart View Only Member Role: Primary Care Physician Address: Address: [address] [place] [address]- Care Team Related Persons Name: DECLINED, DECLINED Name: ARIELA WHITE
[2023-08-25 18:55] LABS: Bilirubin Negative (Negative); Blood Negative (Negative); Clarity Clear (Clear); Glucose Negative (Negative); Ketones Negative (Negative); Leukocyte Esterase Negative (Negative); Nitrite Negative (Negative); Urobilinogen 0.2 mg/dL (Up to 0.2); pH 5.5 (5-8)
== END 2023-08-25 14:53 | disposition home or self-care (01) ==
LOC: NCHCN 14:52
PROVIDERS: Visit Provider Nurse Practitioner Family
DX: R31.29 Other microscopic hematuria (principal)
CPT/HCPCS: 81003

== ENCOUNTER 2024-03-14 15:26 | Outpatient (REF) | payer MEDICARE, SELFPAY ==
--- OUTSIDE RECORDS SUMMARY | 2024-03-14 15:33 | XMS_ITS | Encounter Summary ---
Author Organization [facility] [place] [address] Care Team Providers Care Customer Care Associate Name Role Phone Elisha Mckenzie Primary Care Provider [phone] Encounter Details Date Type Department Care Team (Late st Contact Info) Description 08/05/2023 6:05 PM EDT Telehealth [place] [address] Telehealth, Neurology None Social History Tobacco Use Types Packs/Day Years Used Date Smoking Tobacco: Former Cigarettes 1.5 10 0 08/18/2000 - 08/18/2010 Smokeless Tobacco: Never Sex and Gender Information Value Date Recorded Sex Assigned at Not on file Gender Identity Not on file Sexual Orientation Not on file documented as of this encounter Plan of Treatment Not on file documented as of this encounter Visit Diagnoses Not on filedocumented in this encounter Care Teams Customer Care Associate Relationship Specialty Start Date End Date Elisha Mckenzie PA [address] [place] [id number] PCP - General Internal Medicine 02/09/17 documented as of this encounter
--- OUTSIDE RECORDS SUMMARY | 2024-03-14 15:33 | XMS_ITS | Clinical Summary ---
Author Organization [facility] [place] [address] Care Team Providers Care Lease Analyst Name Role Phone Elisha Mckenzie Primary Care Provider Allergies Active Allergy Reactions Criticality Noted Date Comments Nsaids (Non-Steroidal Anti-Inflammatory Drug) Nausea And Vomiting Unclassified Drug Other (See Comments) 11/16/19 11 Antidepressants Reactions - headache Medications Medication Sig Dispensed Refills Start Date End Date Status Glucosamine Sulfate 500 mg Cap 09/04/2004 Active cetirizine (ZYRTEC) 10 mg tablet 10mg, PO, QD 09/04/2004 Active metoprolol succinate (TOPROL XL) 50 mg 24 hr tablet 50mg, PO, Twice daily 09/04/2004 Active folic acid (FOLVITE) 1 mg tablet 09/04/2004 Active UBIDECARENONE (COENZYME Q10 ORAL) 09/04/2004 Activ e MELATONIN ORAL 09/04/2004 Active ranitidine (ZANTAC) 150 mg tablet 150MG, PO, Twice daily 09/04/2004 Active acetaminophen-codeine (TYLENOL-CODEINE #4) 300-60 mg per tablet Take 2 tablets by mouth every 4 hours. Active carisoprodol (SOMA) 350 mg tablet Take 350 mg by mouth 2 times daily. Active testosterone (ANDRODERM) 2.5 mg/[address] 2 patches onto the skin nightly. Active BABY ASPIRIN ORAL Take 81 mg by mouth daily. Active ezetimibe-simvastatin (VYTORIN 10-40) 10-40 mg per tablet Take 1 tablet by mouth daily. Active LORazepam (ATIVAN) 1 mg tablet Take 1 mg by mouth 2 times daily as needed. Active MULTI-VITAMIN ORAL Take 1 tablet by mouth daily. Active sildenafil (VIAGRA) 100 mg tablet Take 100 mg by mouth as needed. Active rosuvastatin (CRESTOR) 10 mg tablet Take 10 mg by mouth daily. Active citalopram (CELEXA) 20 mg tablet Take 20 mg by mouth daily. Active morphine (MS CONTIN) 30 mg 12 hr tablet Take 30 mg by mouth 2 times daily. Active gabapentin (NEURONTIN) 300 mg Capsule take 1 capsule by mouth at bedtime 0 02/06/2017 Active Active Problems Problem Noted Date Diagnosed Date Peyronie's disease 11/18/2010 SK (seborrheic keratosis) 02/22/2008 Social History Tobacco Use Types Packs/Day Years Used Date Smoking Tobacco: Former Cigarettes 1.5 10 0 08/18/2000 - 08/18/2010 Smokeless Tobacco: Never Sex and Gender Information Value Date Recorded Sex Assigned at Not on file Gender Identity Not on file Sexual Orientation Not on file Last Filed Vital Signs Vital Sign Reading Time Taken Comments Blood Pressure 110/70 11/18/2010 10:39 AM EDT Pulse 60 11/18/2010 10:39 AM EDT Temperature - - Respiratory Rate - - Oxygen Saturation - - Inhaled Oxygen Concentration - - Weight 79.4 kg (175 lb) 11/18/2010 10:39 AM EDT Height 177.8 cm (5' 10) 11/18/2010 10:39 AM EDT Body Mass Index 25.11 11/18/2010 10:39 AM EDT Plan of Treatment Health Maintenance Due Date Last Done Comments CT Colonography 1950 Colonoscopy 1950 Colorectal Cancer Screening 1950 FIT DNA 1950 FIT 1950 Sigmoidoscopy (10 year) with FIT yearly 1950 Sigmoidoscopy 1950 Hepatitis C Screening 11/23/1967 Tetanus/Diphtheria/Pertussis Vaccines (1 - Tdap) 1968 Pneumoccocal Vaccine: 50+ (1 of 1 - PCV) 11/23/1999 Zoster vaccine (1 of 2) 11/23/1999 Advance Directive 2004 AAA Screen 2014 Covid-19 Vaccine (2023-2 5 season) 2023 01/01/2022, 05/30/2021, 12/24/2020, Additional history exists Influenza (Flu) vaccine (1 o f 1 - Influenza standard series) 10/25/2023 Insurance Payer Benefit Plan / Group Subscriber ID Effective Dates Phone Address Type MEDICARE MEDICARE PART A & B [id number] 2014-Present [phone] [place] [address] Care Teams Lease Analyst Relationship Specialty Start Date End Date Elisha Mckenzie PA [address] [place] [address] PCP - General Internal Medicine 02/09/17
--- OUTSIDE RECORDS SUMMARY | 2024-03-14 15:33 | XMS_ITS | Encounter Summary ---
Author Organization [facility] [place] [address] Care Team Providers Care Primary Education Professor Name Role Phone Elisha Mckenzie Primary Care Provider [phone] Reason for Visit * Reason Comments Follow-up Skin Check * Consultation (Routine) - Specialty Diagnoses / Procedures Referred By Contcarrie t Referred To Contact Dermatology Diagnoses Neoplasm of uncertain behavior of skin Procedures Skin Lesion on nose Juan Jose Tiwari MD [address] [address] Pedro Garzon MD [address] [place] [address], [facility] [place] [address] Referral ID Status Reason Start Date Expiration Date V isits Requested Visits Authorized [id number] 12/01/2016 12/01/2017 1 1 Encounter Details Date Type Department Care Team (Late st Contact Info) Description 02/09/2017 3:45 PM EST Office Visit Dermatology at [address] [address] Pedro Garzon MD [address] [place] [address], [facility] [place] [address] Nevus Social History Tobacco Use Types Packs/Day Years Used Date Smoking Tobacco: Former Cigarettes 1.5 10 0 08/18/2000 - 08/18/2010 Smokeless Tobacco: Never Sex and Gender Information Value Date Recorded Sex Assigned at Not on file Gender Identity Not on file Sexual Orientation Not on file documented as of this encounter Progress Notes * Pedro Garzon MD - 02/09/2017 3:45 PM EST PROBLEM: Mid nasal bridge lesion. Vickey follows up after last seeing me in 2007. He has a new lesion on the bridge of the nose he would like to have treated. His primary care providers have treated with LN2 on several occasions with good initial response but then recurrence after several years. He thinks it may have taken 5 years for it to come back each time. 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 Physical examination reveals a pigmented round 3 mm papule, symmetric in shape, appearing fairly unremarkable and benign in appearance without surrounding inflammation or induration. Differential would include nevus versus possible BCCA versus SCCA versus adnexal tumor. The rest of the facial examination is unremarkable. A/P: Mid nasal bridge lesion. Nevus. Rule out BCCA/SCCA/question adnexal tumor. A. After obtaining informed consent, the site was anesthetized and removed with shave biopsy and C and D x3. B. After curettage, it measured 4 mm in diameter. C. Wound care instructions and supplies given. Return to clinic here p.r.n. for new lesions/concerns. cc: CHERRI Kolb documented in this encounter Plan of Treatment Not on file documented as of this encounter Visit Diagnoses Diagnosis Nevus Benign neoplasm of skin, site unspecified documented in this encounter Care Teams Primary Education Professor Relationship Specialty Start Date End Date Elisha Mckenzie PA [address] [place] [id number] PCP - General Internal Medicine 02/09/17 documented as of this encounter
--- OUTSIDE RECORDS SUMMARY | 2024-03-14 15:34 | XMS_ITS | Encounter Summary ---
Author Organization [facility] [place] [address] Care Team Providers Care Family Day Carer Name Role Phone Babak Gonzalez MD Primary Care Provider Reason for Visit * Reason Comments Abnormal Penile Curvature Encounter Details Date Type Department Care Team (Late st Contact Info) Description 11/18/2010 10:40 AM EDT [place] [address] Pernell Shrestha III, MD [facility] [place] [address] Peyronie's disease (Primary Dx) Discharge Disposition: Home Social History Tobacco Use Types Packs/Day Years Used Date Smoking Tobacco: Former Cigarettes 1.5 10 0 08/18/2000 - 08/18/2010 Smokeless Tobacco: Never Sex and Gender Information Value Date Recorded Sex Assigned at Not on file Gender Identity Not on file Sexual Orientation Not on file documented as of this encounter Last Filed Vital Signs Vital Sign Reading [...] Mass Index 25.11 11/18/2010 10:39 AM EDT documented in this encounter Progress Notes * Pernell Shrestha III, MD - 11/18/2010 12:06 PM EDT Mr. Martínez is a 59-year-old gentleman I am seeing at the request of Dr. Ryne Echols. He has been sent for evaluation of Peyronie's disease. This gentleman has a one year history of a variety of difficulties with his erection. He complains of flaccidity of the proximal third of his penis with erection. The distal two thirds does tumesce well. He has noticed some slight that is to say approximately five to ten degrees of dorsal angulation from the midshaft of the penis. He takes PDE5 inhibitors and with that is still able to have reasonable erections satisfactory for intercourse. He believes that the problem has essentially stabilized and he is having less flaccidity on his proximal shaft. He has no pain either at rest or with erection. His erectile dysfunction is well controlled with Viagra. He has also taking testosterone in the past. Past medical history is significant for arthritis, some coronary artery disease, and hypertension. Physical Examination: In general he is a well-developed, well-nourished gentleman in no acute distress. Examination of the abdomen: It is soft and nontender. Examination of the genitalia: The penis is a normal male phallus. The meatus is in the orthotopic location. There is a broad based long plaque, which interestingly seems to be more ventrally located. There is no significant dorsal plaque formation. The patient has not taken any photographs. He is not interested in having injection for a rection today. At any rate we have discussed the various aspects of Peyronie's disease including the natural history and treatment options. We have discussed the various medical options, as well as surgical approaches to this problem. His penile angulation is not significant enough to warrant plication surgery or plaque incision and grafting. I have discussed the use of inflatable penile prosthesis with penile modeling. As he is still functioning reasonably well, I have advised that we will refrain from further considerations over surgery. I have asked him to start on vitamin E 800 to 1000 international units a day. I have offered to see him again should his problem become more severe or intractable. At the end of this 30-minute session all questions have been answered to his satisfaction. documented in this encounter Plan of Treatment Not on file documented as of this encounter Visit Diagnoses Diagnosis Peyronie's disease- Primary documented in this encounter Care Teams Family Day Carer Relationship Specialty Start Date End Date Babak Gonzalez MD PCP - General 01/15/10 02/08/17 documented as of this encounter
--- OUTSIDE RECORDS SUMMARY | 2024-03-14 15:34 | XMS_ITS | Encounter Summary ---
Author Organization [facility] [place] [address] Care Team Providers Care Ship Boat Or Barge Mate Name Role Phone Babak Gonzalez MD Primary Care Provider Encounter Details Date Type Department Care Team (Latest Contact Info) Description 07/05/2014 8:16 PM EDT - 07/05/2014 11:59 PM EDT [place] [address] Dalton Arenas MD [address] [place] [address] Discharge Disposition: Home Social History Tobacco Use Types Packs/Day Years Used Date Smoking Tobacco: Former Cigarettes 1.5 10 0 08/18/2000 - 08/18/2010 Smokeless Tobacco: Never Sex and Gender Information Value Date Recorded Sex Assigned at Not on file Gender Identity Not on file Sexual Orientation Not on file documented as of this encounter Medications at Time of Discharge Medication Sig Dispensed Refills Start Date End Date rosuvastatin (CRESTOR) 10 mg tablet Take 10 mg by mouth daily. citalopram (CELEXA) 20 mg tablet Take 20 mg by mouth daily. morphine (MS CONTIN) 30 mg 12 hr tablet Take 30 mg by mouth 2 times daily. acetaminophen-codeine (TYLENOL-CODEINE #4) 300-60 mg per tablet Take 2 tablets by mouth every 4 hours. carisoprodol (SOMA) 350 mg tablet Take 350 mg by mouth 2 times daily. testosterone (ANDRODERM) 2.5 mg/[address] 2 patches onto the skin nightly. BABY ASPIRIN ORAL Take 81 mg by mouth daily. ezetimibe-simvastatin (VYTORIN 10-40) 10-40 mg per tablet Take 1 tablet by mouth daily. LORazepam (ATIVAN) 1 mg tablet Take 1 mg by mouth 2 times daily as needed. MULTI-VITAMIN ORAL Take 1 tablet by mouth daily. sildenafil (VIAGRA) 100 mg tablet Take 100 mg by mouth as needed. Glucosamine Sulfate 500 mg Cap 09/04/2004 cetirizine (ZYRTEC) 10 mg tablet 10mg, PO, QD 09/04/2004 metoprolol succinate (TOPROL XL) 50 mg 24 hr tablet 50mg, PO, Twice daily 09/04/2004 folic acid (FOLVITE) 1 mg tablet 09/04/2004 UBIDECARENONE (COENZYME Q10 ORAL) 09/04/2004 MELATONIN ORAL 09/04/2004 ranitidine (ZANTAC) 150 mg tablet 150MG, PO, Twice daily 09/04/2004 documented as of this encounter Plan of Treatment Not on file documented as of this encounter Procedures Procedure Name Priority Date/Time Associated Diagnosis Comments SURGICAL PATHOLOGY REPORT Routine 07/05/2014 12:00 PM EDT documented in this encounter Results * Surgical Pathology Report (07/05/2014 12:00 PM EDT) Final Diagnosis ? [facility] ? Provider: ?? DALTON ARENAS ?? Pt. Name: ?? VICKEY MARTÍNEZ ? Acc #: ?[id number] ?Pt. ? Col Date: ?? 07/05/2014 ? /Sex: ?1950,(63 years),Male ? Rec Date: ?? 07/05/2014 ? LOC: ?[facility] ? SURGICAL PATHOLOGY ? ---Pathologic Diagnosis--- ? A - Ascending colon, polypectomy: ? Sessile serrated polyp/adenoma. ? B - Hepatic flexure, polypectomy: ? Tubular adenoma. ? C - Rectum, polypectomy: ? Hyperplastic polyp. ? CR-1, CR-PX ? 07/07/14 ? [facility] ? 07/07/14 Verified by: ? Stevie Greenwood MD ? Pathologist ? (Electronic Signature) ? The attending pathologist whose signature appears on this report has ? reviewed all diagnostic slides and has edited the gross and/or ? microscopic portion of the report in rendering the final pathologic ? diagnosis. ? ---Gross Description--- ? A - Labeled/Fixative : Polyp-ascending colon, formalin. ? Quantity/Size: One, 0.2 cm. ? Tissue Description: Soft casas tissue. ? Sections/Process ing: (T1) ? B - Labeled/Fixative : Polyp-hepatic flexure, formalin. ? Quantity/Size: One, 0.3 cm. ? Tissue Description: Soft casas tissue. ? Sections/Process ing: (T1) ? C - Labeled/Fixative : Rectal polyp, formalin. ? Quantity/Size: One, 0.3 cm. ? Tissue Description: Soft casas tissue. ? Sections/Process ing: (T1) ??ksb ? ---Clinical Information--- ? Specimen Submitted: ? A - Polyp ascending colon ? B - Polyp hepatic flexure ? C - Rectal polyp ? [facility] ? Provider: ?? DALTON ARENAS ?? Pt. Name: ?? VICKEY MARTÍNEZ ? Acc #: ?[id number] ?Pt. ? Col Date: ?? 07/05/2014 ? /Sex: ?1950,(63 years),Male ? Rec Date: ?? 07/05/2014 ? LOC: ?[facility] ? SURGICAL PATHOLOGY ? Clinical History: ? None provided ? Clinical Diagnosis: ? None provided 07/07/2014 2:04 PM EDT [facility] GI Biopsy 07/05/2014 12:0 0 PM EDT 07/05/2014 12:00 PM EDT GI Biopsy 07/05/2014 12:0 0 PM EDT 07/05/2014 12:00 PM EDT GI Biopsy 07/05/2014 12:0 0 PM EDT 07/05/2014 12:00 PM EDT Dalton Arenas MD PATHOLOGY/CYTOLOGY O RDERABLES Performing Organization Address City/State/[facility] Co de Phone Number [facility] [place] [phone] documented in this encounter Visit Diagnoses Not on filedocumented in this encounter Care Teams Ship Boat Or Barge Mate Relationship Specialty Start Date End Date Babak Gonzalez MD PCP - General 01/15/10 02/08/17 documented as of this encounter
--- OUTSIDE RECORDS SUMMARY | 2024-03-14 15:34 | XMS_ITS | Encounter Summary ---
Author Organization [facility] Address [address] [place] [address] Care Team Providers Care Computer Operations Supervisor Name Role Phone Babak Gonzalez MD Primary Care Provider Sunday toussaint Encounter Details Date Type Department Care Team (Late st Contact Info) Description 06/29/2021 Lab Requisition [facility] Pathology & Laboratory Medicine - [address] [address] Outr Resulting Lab, Provider Social History Tobacco Use Types Packs/Day Years Used Date Smoking Tobacco: Never Assessed Sex and Gender Information Value Date Recorded Sex Assigned at Not on file Legal Sex Male 18:30 EST Gender Identity Not on file Sexual Orientation Not on file documented as of this encounter Plan of Treatment Not on file documented as of this encounter Procedures Procedure Name Priority Date/Time Associated Diagnosis Comments PSA TOTAL, DIAGNOSTIC Routine 06/28/2021 9:30 EDT documented in this encounter Results * PSA TOTAL, DIAGNOSTIC (06/28/2021 9:30 EDT) PSA 0.1 <=6.5 ng/mL 07/01/2021 11:12 EDT [facility] Blood VENOUS BLOOD / Unknown 06/28/2021 9:30 EDT 06/29/2021 22:02 EDT Narrative [facility] - 07/01/2021 11:12 EDT NOTE: Serum PSA concentration should not be interpreted as absolute evidence for the presence or absence of malignant disease. Assayed on Siemens ADVIA VENNCOMMaur XPT using chemiluminescent technology.??Values obtained by using different assay methods cannot be used interchangeably. us Provider Outr Resulting Lab CHEMISTRY & BLOOD GA S ORDERABLES Final Result [facility] [address] [place] [address] documented in this encounter Visit Diagnoses Not on filedocumented in this encounter Care Teams Computer Operations Supervisor Relationship Specialty Start Date End Date Babak Gonzalez MD PCP - General 01/13/15 documented as of this encounter
--- OUTSIDE RECORDS SUMMARY | 2024-03-14 15:34 | XMS_ITS | Encounter Summary ---
[place] [address] Care Team Providers Care Balance Wheel Arm Burnisher Name Role Phone Babak Gonzalez MD Primary Care Provider Encounter Details Date Type Department Care Team (Late st Contact Info) Description 11/15/2010 [place] [address] Leah Snyder, RN Social History Tobacco Use Types Packs/Day Years Used Date Smoking Tobacco: Never Assessed Sex and Gender Information Value Date Recorded Sex Assigned at Not on file Gender Identity Not on file Sexual Orientation Not on file documented as of this encounter Plan of Treatment Not on file documented as of this encounter Visit Diagnoses Not on filedocumented in this encounter Care Teams Balance Wheel Arm Burnisher Relationship Specialty Start Date End Date Babak Gonzalez MD PCP - General 01/15/10 02/08/17 documented as of this encounter
--- OUTSIDE RECORDS SUMMARY | 2024-03-14 15:34 | XMS_ITS | Encounter Summary ---
Author Organization [facility] Address [address] [place] [address] Care Team Providers Care Special Delivery Clerk Name Role Phone Babak Gonzalze MD Primary Care Provider Sunday toussaint Encounter Details Date Type Department Care Team (Late st Contact Info) Description 07/02/2022 Lab Requisition [facility] Pathology & Laboratory Medicine - [address] [address] Outr Resulting Lab, Provider Social History Tobacco [...] Procedure Name Priority Date/Time Associated Diagnosis Comments HEPATITIS B SURFACE ANTIBODY Routine 07/02/2022 14:58 EDT documented in this encounter Results * HEPATITIS B SURFACE ANTIBODY (07/02/2022 14:58 EDT) Hep B Surface Ab, Quantitative 23.5 See Note mIU/mL 07/03/2022 9:21 EDT [facility] Comment: Reference Range for Hep B Surface Ab, Quant: Positive: >= 10.0 mIU/mL Negative: ??< 10.0 mIU/mL Patient is presumed to be immune to infection with Hepatitis B Virus. Hep B Surface Ab, Qualitative Positive See Note 07/03/2022 9:21 EDT [facility] Comment: Reference Range for Hep B Surface Ab, Qual: Unvaccinated: ??Negative Vaccinated: ??Positive Blood VENOUS BLOOD / Unknown 07/02/2022 14:58 EDT 07/02/2022 21:36 EDT us Provider Outr Resulting Lab CHEMISTRY & BLOOD GA S ORDERABLES Final Result [facility] [address] [place] [address] documented in this encounter Visit Diagnoses Not on filedocumented in this encounter Care Teams Special Delivery Clerk Relationship Specialty Start Date End Date Babak Gonzalez MD PCP - General 01/13/15 documented as of this encounter
--- OUTSIDE RECORDS SUMMARY | 2024-03-14 15:34 | XMS_ITS | Referral Summary ---
Author Organization [facility] Address [address] [place] [address] Care Team Providers Care Auto Overhauler Name Role Phone Babak Gonzalez MD Primary Care Provider Sunday toussaint Social History Tobacco Use Types Packs/Day Years Used Date Smoking Tobacco: Never Assessed Sex and Gender Information Value Date Recorded Sex Assigned at Not on file Legal Sex Male 18:30 EST Gender Identity Not on file Sexual Orientation Not on file Plan of Treatment Not on file Care Teams Auto Overhauler Relationship Specialty Start Date End Date Babak Gonzalez MD PCP - General 01/13/15
--- OUTSIDE RECORDS SUMMARY | 2024-03-14 15:34 | XMS_ITS | Clinical Summary ---
Author Organization [facility] Address [address] [place] [address] Care Team Providers Care Clerical Adviser Name Role Phone Babak Gonzalez MD Primary Care Provider Sunday toussaint Social History Tobacco Use Types Packs/Day Years Used Date Smoking Tobacco: Never Assessed Sex and Gender Information Value Date Recorded Sex Assigned at Not on file Legal Sex Male 18:30 EST Gender Identity Not on file Sexual Orientation Not on file Plan of Treatment Health Maintenance Due Date Last Done Comments Hepatitis C Screen 1950 Fall Risk Screening 2014 COVID-19 Vaccine (2023- season) 2023 RSV Immunization ( o r 60+ Years) (1 - 1-dose 75+ series) 2024 Care Teams Clerical Adviser Relationship Specialty Start Date End Date Babak Gonzalez MD PCP - General 01/13/15
[2024-03-14 19:05] LABS: ALT 30 U/L (16-63); AST 22 U/L (15-37); Albumin 4.1 g/dL (3.4-5.0); Alkaline Phosphatase 107 U/L (46-116); Anion Gap 8.4 mmol/L (3-11); BUN 21 mg/dL (7-18); Bilirubin, Total 0.37 mg/dL (0.2-1.0); CO2 26.6 mmol/L (21.0-32.0); Calcium 9.5 mg/dL (8.5-10.1); Chloride 104 mmol/L (98-107); Cholesterol 226 mg/dL (<200); Estimated GFR 78.98 (mL/min/1.73m2); Glucose 119 mg/dL (74-106); HDL Cholesterol 41 mg/dL (40-60); Potassium 4.1 mmol/L (3.5-5.1); Sodium 139 mmol/L (136-145); Total Protein 7.5 g/dL (6.4-8.2); Triglyceride 404 mg/dL (<150)
[2024-03-14 19:57] LABS: LDL CHOLESTEROL 123 mg/dL (<100)
== END 2024-03-14 15:27 | disposition home or self-care (01) ==
LOC: NCHCN 15:26
PROVIDERS: Visit Provider Nurse Practitioner Family
DX: E78.5 Hyperlipidemia, unspecified (principal)
CPT/HCPCS: 80053; 80061; 83721